=== PATIENT | female | born 1985 | race Caucasian/White ===

== ENCOUNTER → 2017-07-11 15:03 | Outpatient (CLI) | payer OTHER, SELFPAY ==
[2017-07-11 16:24] LABS: Hematocrit 36.4 % (37-47); Hemoglobin 11.9 g/dl (12.0-15.0); Mean Corp Hgb Conc 32.7 g/gl (32-36); Mean Corpuscular Volume 91.7 fL (81-99); Mean Platelet Vol. 10.6 fl (6.2-12.0); Platelet Count 225 K/mm3 (150-450); RBC Distribution Width CV 13.1 % (11.6-14.6); RBC Distribution Width SD 43.7 fl (35.1-43.9); Red Blood Count 3.97 M/mm3 (4.2-5.4); White Blood Count 12.5 K/mm3 (4.4-11.0)
[2017-07-11 16:31] LABS: Glucose Challenge Gest 1H 50g 110 mg/dL (70-140)
[2017-07-11 17:08] LABS: Scan Indicated on CBC? Y/N NO
== END ==
PROVIDERS: Visit Provider Obstetrics & Gynecology
DX: Z34.82 Encounter for supervision of other normal pregnancy, second trimester (principal)
CPT/HCPCS: 36415; 82950; 85027

== ENCOUNTER → 2017-09-10 16:43 | Outpatient (CLI) | payer OTHER, SELFPAY ==
[2017-09-10 18:25] LABS: Group B Strep DNA By PCR Negative (Negative); Internal Control PASS; Probe Check PASS; Specimen Processing Control PASS
== END ==
PROVIDERS: Visit Provider Obstetrics & Gynecology
DX: Z36.85 Encounter for antenatal screening for Streptococcus B (principal)
CPT/HCPCS: 87081; 87653

== ENCOUNTER 2017-10-01 07:03 | Inpatient (IN) | payer OTHER, SELFPAY ==
[2017-10-01] MEDS: Lactated Ringers 1,000 ML 50 ML IV ×3 (07:25→13:39)
[2017-10-01 07:55] LABS: Hematocrit 36.9 % (37-47); Hemoglobin 12.3 g/dl (12.0-15.0); Mean Corp Hgb Conc 33.3 g/gl (32-36); Mean Corpuscular Hgb 29.8 pg (27.0-32.0); Mean Corpuscular Volume 89.3 fL (81-99); Mean Platelet Vol. 10.7 fl (6.2-12.0); Platelet Count 209 K/mm3 (150-450); RBC Distribution Width SD 42.1 fl (35.1-43.9); Red Blood Count 4.13 M/mm3 (4.2-5.4); White Blood Count 9.1 K/mm3 (4.4-11.0)
[2017-10-01 07:57] VITALS: BMI 37.4
[2017-10-01 07:57] LABS: Scan Indicated on CBC? Y/N NO
[2017-10-01] MEDS: Oxytocin 30 units/NS 500 ml 30 UNITS/500 ML IV.SOLN IV (07:59)
[2017-10-01] MEDS: fentaNYL-bupivacaine (epidural) 100 ML BAG EPIDURAL ×2 (08:35→12:33)
[2017-10-01] MEDS: Oxytocin 30 units/NS 500 ml 30 UNITS/500 ML IV.SOLN 334 UNITS IV (14:10)
--- NOTE | 2017-10-01 14:23 | PCM.OB.VAG ---
Vaginal Delivery Maternal Presentation: Elective Induction 39+ weeks admitted for elective induction of labor Method of Induction: Pitocin Amniotic Membrane Rupture Type: Artificial Rupture of Membrane time: 0900 Amniotic Fluid Description: Clear Final MIR: 10/05/17 Final MIR Source: US <20 weeks Gestational age: 39 Weeks and 3 Days Date of Procedure: 10/01/17 Pre-Operative Diagnosis: Labor Post-Operative Diagnosis: Same Surgery/ Procedure Performed: Spontaneous Vaginal Delivery Anesthesiologist: Will Cotton Type of Anesthesia: Epidural Description of Procedure: Progressed over 6 hours from 3 CM to FD then pushed over two contractions to deliver a live male without complication. There was a tight umbilical cord x 1. Reduced after delivery of the body. Delayed cord clamping was employed. Active cry shortly after delivery. The placenta delivered spontaneously intact with a centrally located 3VC. The uterus contracted well. A small posterior vaginal perineal tear was repaired with 2-0 Vicryl. Presentation: Vertex Placental Delivery Description: Spontaneous Placenta Disposition: [facility] Percentage of Placenta Abruption: 0 Cord Vessel Description: 3 Vessels Nuchal Cord Compression: Without compression Cord Entanglement: Around neck x 1, tight Estimated Blood Loss: 250 Infant A gender: Male (1 minute): 8 (5 minute): 9 Episiotomy Description: None Laceration: Midline, Perineal Extension/lac, 2nd degree Medications given after delivery: IV Pitocin Complications: None
[2017-10-01] MEDS: Oxytocin 30 units/NS 500 ml 30 UNITS/500 ML IV.SOLN 167 UNITS IV (14:40)
[2017-10-01] MEDS: Ibuprofen 600 MG Tablet PO ×2 (15:07→21:27)
[2017-10-01] MEDS: 0.9% Saline Lock 10 ML Syringe IV (16:25)
[2017-10-01] MEDS: Acetaminophen 500 MG Tablet 1000 MG PO (18:24)
[2017-10-01 20:10] VITALS: BP 127/77; PULSE 89; RESP 18; TEMP 36.3; O2SAT 98
[2017-10-01] MEDS: oxyCODONE 5 MG Tablet PO (22:16)
[2017-10-02 00:30] VITALS: BP 106/57; PULSE 83; RESP 18; TEMP 36
[2017-10-02] MEDS: oxyCODONE 5 MG Tablet PO (02:17)
[2017-10-02] MEDS: Ibuprofen 600 MG Tablet PO ×4 (04:28→21:56)
[2017-10-02 04:30] VITALS: BP 112/67; PULSE 87; RESP 18; TEMP 36.1
[2017-10-02 04:47] LABS: Hematocrit 32.7 % (37-47); Hemoglobin 11.2 g/dl (12.0-15.0); Mean Corp Hgb Conc 34.3 g/gl (32-36); Mean Corpuscular Hgb 31.1 pg (27.0-32.0); Mean Corpuscular Volume 90.8 fL (81-99); Mean Platelet Vol. 10.6 fl (6.2-12.0); Platelet Count 173 K/mm3 (150-450); RBC Distribution Width CV 12.8 % (11.6-14.6); RBC Distribution Width SD 41.9 fl (35.1-43.9); White Blood Count 13.1 K/mm3 (4.4-11.0)
[2017-10-02 04:48] LABS: Scan Indicated on CBC? Y/N NO
[2017-10-02] MEDS: Acetaminophen 500 MG Tablet 1000 MG PO ×2 (06:47→14:32)
--- NOTE | 2017-10-02 07:57 | PCM.PN.OB ---
Subjective: Some cramping. Breast feeding. Bleeding appropriate. Objective: Afeb VSS. Hgb appropriate - Physical Exam General: Alert, Oriented x3, Cooperative, No apparent distress Lungs: Clear to auscultation, Normal air movement Cardiovascular: Regular rate, Regular Rhythm Abdomen: Non Tender, Non-Distended Extremities: No edema Skin: No rashes Neurological: Neuro grossly intact Psych/Mental Status: Normal Affect Comment: Lochia light Vital Signs Temp Pulse Resp BP Pulse Ox 96.9 F L 87 18 112/67 98 10/02/17 04:30 10/02/17 04:30 10/02/17 04:30 10/02/17 04:30 10/01/17 20:10 Oxygen Delivery Method Room Air Weight: 246 lb 4.101 oz Body Mass Index (BMI) 37.4 Intake and Output for Last 24 Hours 09/30/17 10/01/17 10/02/17 23:59 23:59 23:59 Output Total 400 / 400 Balance -400 / -400 Laboratory Tests Past 24 Hrs 10/01/17 10/01/17 10/02/17 07:25 07:25 04:35 WBC 9.1 13.1 H RBC 4.13 L 3.60 L Hgb 12.3 11.2 L Hct 36.9 L 32.7 L MCV 89.3 90.8 MCH 29.8 31.1 MCHC 33.3 34.3 RDW 13.0 12.8 RDW Differential 42.1 41.9 Plt Count 209 173 MPV 10.7 10.6 Blood Type O POSITIVE Antibody Screen NEGATIVE Medical Necessity - Tobacco Use Smoking Status: Never smoker Assessment/Plan Doing well on PP day#2. Continue routine PP care.
[2017-10-02 08:00] VITALS: BP 110/64; PULSE 93; RESP 18; TEMP 36.8
--- NOTE | 2017-10-02 08:02 | DCINST_ITS ---
Discharge Diet: No Restrictions Discharge Activity: Return to Normal Activity, No Restrictions, May Drive, May Shower Return to work on:: 12/01/17 May shower in (days): 0 May resume sexual activity in: 4-6 weeks Call your doctor if your incision/area has: Sudden Increased Bleeding, Increased Pain/ Swelling, Foul Smelling Discharge Call your doctor if you observe: Fever of 101 or Higher, Inability to urinate, Inability to have a bowel movement, Using more than one pad per hour, Shortness of breath, Chest pain, Calf discomfort, Uncontrolled pain Cleanse incision/area with: Soap & Water Additional Instructions: If you experience any of the following, contact your healthcare provider. * Bleeding that soaks a pad every hour for 2 hours * Fever 100.4 or higher * Unrelieved incision or abdominal pain * Swelling, redness, discharge or bleeding from your incision or episiotomy site * Your incision begins to separate * Problems urinating (including inability to urinate or burning while urinating) . * Visual changes * Severe headache * Flu-like symptoms * Pain or redness in one of both of your breasts * Pain, warmth, tenderness or swelling in your legs, especially the calf area * Frequent nausea and vomiting * Symptoms of depression or anxiety If you experience any of the following, call 911 or go to the nearest Emergency Room. * Chest pain * Problems breathing * Seizure activity * Partial or complete paralysis of a body part, slurred speech, weakness or drooping of the face, or a sudden inability to walk or hold your balance Allergies/Adverse Reactions: Allergies No Known Allergies Allergy (Verified 09/21/13 12:03) Medications to take at Discharge Acetaminophen [Tylenol] 1,000 mg PO Q6H PRN PRN 10/01/17 Docusate Sodium [Dok] 100 mg PO PRN PRN 10/01/17 Vits [Prenatabs FA ] 1 tablet PO DAILY 10/01/17 SimETHICONE [Mylicon] 80 mg PO PRN PRN 10/01/17 Ibuprofen 600 mg PO Q6H PRN PRN #30 tab 10/02/17 The following prescriptions were given: Ibuprofen 600 mg PO Q6H PRN PRN #30 tab PRN Reason: pain or cramping Please Follow Up With: Florentin Woodruff MD When: 6 weeks Primary Care Physician: Michoacano Jalloh MD [Primary Care Provider] - Proposed Discharge Date: 10/03/17
[2017-10-02] MEDS: Senna/Docusate Sodium 1 Tablet PO (10:18)
[2017-10-02] MEDS: Prenatal Vits Tablet 1 TABLET PO (10:19)
[2017-10-02 12:00] VITALS: BP 117/69; PULSE 82; RESP 16; TEMP 36.4
[2017-10-02 16:00] VITALS: BP 118/63; PULSE 96; RESP 18; TEMP 36.8
[2017-10-02 20:00] VITALS: BP 116/84; PULSE 84; RESP 18; TEMP 36.3
[2017-10-03 02:45] VITALS: BP 118/80; PULSE 80; RESP 16; TEMP 36.4
[2017-10-03] MEDS: Ibuprofen 600 MG Tablet PO ×2 (04:00→10:25)
--- NOTE | 2017-10-03 08:38 | PCM.PN.OB ---
Subjective: No specific complaints. Breast feeding Bleeding light Objective: Afeb VSS - Physical Exam General: Alert, Oriented x3, Cooperative, No apparent distress Lungs: Clear to auscultation, Normal air movement Cardiovascular: Regular rate, Regular Rhythm Abdomen: Soft, Non Tender, Non-Distended, - - Fundus nontender Extremities: No edema Skin: No rashes Neurological: Neuro grossly intact Psych/Mental Status: Normal Affect Comment: Lochia light Vital Signs Temp Pulse Resp BP Pulse Ox 97.5 F L 80 16 118/80 98 10/03/17 02:45 10/03/17 02:45 10/03/17 02:45 10/03/17 02:45 10/01/17 20:10 Oxygen Delivery Method Room Air Weight: 246 lb 4.101 oz Body Mass Index (BMI) 37.4 Intake and Output for Last 24 Hours 10/01/17 10/02/17 10/03/17 23:59 23:59 23:59 Output Total 400 / 400 Balance -400 / -400 Medical Necessity - Tobacco Use Smoking Status: Never smoker Assessment/Plan Doing well on PP day#2. Cleared for discharge home today. Home going instructions and warnings given.
--- NOTE | 2017-10-03 08:40 | PCM.DC.SUM ---
Discharge Date and Diagnosis Date of Admission: 10/01/17 Date of Discharge: 10/03/17 - Primary Discharge Diagnosis S/P Hospital Course and Treatment Consultations 10/01/17 07:20 Consult: Anesthesia Routine Comment: Reason For Exam: LABOR Operations: None Procedures: - - Pitocin induction, Summary of Care Provided: The patient is a 32 year old F admitted for elective induction of labor. This was performed without complication with resultant of live . Post course unremarkable. Discharged home on PP day#2. Discharge Diet: No Restrictions Discharge Activity: Return to Normal Activity, No Restrictions, May Drive, May Shower Return to work on:: 12/01/17 May shower in (days): 0 May resume sexual activity in: 4-6 weeks Call your doctor if your incision/area has: Sudden Increased Bleeding, Increased Pain/ Swelling, Foul Smelling Discharge Call your doctor if you observe: Fever of 101 or Higher, Inability to urinate, Inability to have a bowel movement, Using more than one pad per hour, Shortness of breath, Chest pain, Calf discomfort, Uncontrolled pain Cleanse incision/area with: Soap & Water Home Medications: Medications to take at Discharge Acetaminophen [Tylenol] 1,000 mg PO Q6H PRN PRN 10/01/17 Docusate Sodium [Dok] 100 mg PO PRN PRN 10/01/17 Vits [Prenatabs FA ] 1 tablet PO DAILY 10/01/17 SimETHICONE [Mylicon] 80 mg PO PRN PRN 10/01/17 Ibuprofen 600 mg PO Q6H PRN PRN #30 tab 10/02/17 Following Prescrptions Were Given to Patient: Ibuprofen 600 mg PO Q6H PRN PRN #30 tab PRN Reason: pain or cramping Primary Care Physician: Michoacano Jalloh MD [Primary Care Provider] - Please Follow Up With: Florentin Woodruff MD When: 6 weeks Disposition: Home Minutes spent on discharge:: 55 Patient Condition:: Good Medical Necessity - Tobacco Use Smoking Status: Never smoker Meaningful Use Info Meaningful Use Diagnoses (Choose all that apply): None applicable
[2017-10-03 08:49] VITALS: BP 119/71; PULSE 96; RESP 16; TEMP 36.1; O2SAT 98
[2017-10-03] MEDS: Prenatal Vits Tablet 1 TABLET PO (10:25)
[2017-10-03 11:55] VITALS: BP 121/70; PULSE 88; RESP 18; TEMP 36.4
== END 2017-10-03 12:00 | disposition home or self-care (01) | DRG 775 ==
PROVIDERS: Admitting Provider Obstetrics & Gynecology; Family Provider Family Medicine; PCP Family Medicine; Visit Provider Obstetrics & Gynecology
DX: O69.1XX0 Labor and delivery complicated by cord around neck, with compression, not applicable or unspecified (principal); O70.1 Second degree perineal laceration during delivery; Z3A.39 39 weeks gestation of pregnancy; Z37.0 Single live birth
CPT/HCPCS: 59050; 85027; 86850; 86900; 99218; J7120; A4216; G0378; J3490

== ENCOUNTER → 2017-11-04 09:05 | Outpatient (CLI) | payer OTHER, SELFPAY | PROVIDERS: Visit Provider Obstetrics & Gynecology | DX: R30.0 Dysuria (principal) | CPT/HCPCS: 87086; 87088 ==

== ENCOUNTER → 2018-01-30 15:37 | Outpatient (CLI) | payer OTHER, SELFPAY ==
[2018-02-06 15:11] LABS: HPV HC, High Risk Negative (Negative)
== END ==
PROVIDERS: PCP Family Medicine; Visit Provider Obstetrics & Gynecology
DX: Z12.4 Encounter for screening for malignant neoplasm of cervix (principal)
CPT/HCPCS: 87624; 88175; G0145

== ENCOUNTER → 2019-06-14 | Outpatient (CLI) | payer OTHER, SELFPAY ==
[2019-06-14 19:49] LABS: Chlamydia Trachomatis by PCR Negative (Negative); Neisserai gonorrhoeae by PCR Negative (Negative); Probe Check PASS; Sample Adequacy Control PASS; Specimen Processing Control PASS
== END | disposition home or self-care (01) ==
PROVIDERS: PCP Family Medicine; Visit Provider Obstetrics & Gynecology
DX: Z11.3 Encounter for screening for infections with a predominantly sexual mode of transmission (principal)
CPT/HCPCS: 87491; 87591

== ENCOUNTER → 2019-12-28 | Outpatient (CLI) | payer OTHER, SELFPAY ==
[2019-12-30 20:07] LABS: Chlamydia By Nucleic Acid AMP Negative (Negative)
[2019-12-31 02:03] LABS: Gonococcus By Nucleic Acid AMP Negative (Negative)
[2020-01-03 11:50] LABS: HPV Reflexed? NOT INDICATED
== END | disposition home or self-care (01) ==
LOC: LABSPEC 12-29 08:55
PROVIDERS: PCP Family Medicine; Visit Provider Obstetrics & Gynecology
DX: Z12.4 Encounter for screening for malignant neoplasm of cervix (principal); Z11.3 Encounter for screening for infections with a predominantly sexual mode of transmission
CPT/HCPCS: 87491; 87591; 88175; G0145

== ENCOUNTER → 2020-07-18 | Outpatient (CLI) | payer OTHER, SELFPAY | END | disposition home or self-care (01) | LOC: LABSPEC 07-19 09:46 | PROVIDERS: PCP Family Medicine; Visit Provider Obstetrics & Gynecology | DX: Z36.85 Encounter for antenatal screening for Streptococcus B (principal) | CPT/HCPCS: 87081 ==

== ENCOUNTER 2020-08-07 07:04 | Inpatient (IN) | payer OTHER, SELFPAY ==
[2020-08-07] VITALS (53 sets, daily range): BP systolic 108–150; BP diastolic 58–91; PULSE 82–123; RESP 16; TEMP 36.5–37.8; O2SAT 83–100; BMI 82.2
--- NOTE | 2020-08-07 07:32 | HP.PCM_ITS ---
History and Physical Date of Admission: 08/07/20 ACOG ANTEPARTUM RECORD - HISTORY AND PHYSICAL (08/07/2020) Name: EARL JACKSON History of this : This is a 35 year old [id number] presents at 39 wks + 1 days gestation for elective pitocin induction. OB Physician: Rito Carrizales MD Sidney's Physician: Robinson Beard ...................................................................... : 1985 Age: 35 Address: [address] [address] Phone: (h) [phone] ([phone] Insurance Carrier: [facility] [id number] Emergency Contact: CESILIA JACKSON [phone] ...................................................................... Final MIR: 08/13/20 By Ultrasound: 7 weeks 2 days PARITY: (G-Total Pregnancies P-Fullterm,Premature,Induced AB,Spont AB, Ectopics, Multiple,Living) MIR CONFIRMATION: By LMP: 11/03/19 By First Ultrasound Exam: 01/27/20 Final IMR: 08/13/20 OB PROBLEM LIST: AMA Declined AFP/CF/SMA screening Epidural planned Formula feeding Labor usually induced d/t hx of rapid labors and distance from [facility] Lives 45 mins from [place] ALLERGIES: NKDA MEDICATIONS: 28 mg iron-800 mcg tablet daily SOCIAL HISTORY: Smoking - Never Alcohol Use - denies drinking Diet - balanced Diet Lifestyle - moderate stress lifestyle and Exercise - active 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 Drug Use - denies use of street drugs Sexual Activity - Residence - lives with Place of - [place], [place] Spouse-Sig Other Name - Cesilia Spouse-Sig Other 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 - hospice music therapist - Diane Frias Spouse-Sig Other Phone No - [phone] Children Name(s) - Duke ([place]), Liu (male) ([place]), Walker (09/29) sayra PRIOR DELIVERY HISTORY DEL DATE GEST LAB WT LB WT OZ TYPE ANES LABOR TX 12 Dec 12 39 12 6 9 Vag Epidural No 14 Lavelle 14 39 3 7 15 Vag Epidural No 20 [place] 18 39 6 7 12 Vag Epidural No 25 Jun 20 7 0 0 0 Sab None No ANTEPARTUM FLOW CHART VISIT GE RTC FU F F OK U U DATE WK MD WKS HT PN HR M SS BP ED WT OK GL D EF ST __ ____ ___ __ __ ___ __ __ __ ___ __ __ __ ___ __ Jul 38 JM 1 38 V + + 138/82 sl 232 tr - 13 Apr 37 JMW 1 37 + + 132/84 sl 234 tr - 06 Apr 36 JMW 1 36 V + + 116/74 sl 233 tr - 1 50 -2 Jun 34 JMW 2 34 + + 128/78 sl 224 tr - 09 Mar 32 JMW 2 32 + + 126/76 0 227 tr - Jun 11 JMW 3 28 + + 111/76 0 225 - - May 07 JMW 4 24 + + 118/64 0 218 tr - 15 Apr 02 JM 4 20 - + + 136/83 sl 207 tr - 10 Feb 26 JMW 4 15 + + 114/60 - 218 tr - 13 Jan 22 JMW 4 + O 118/64 0 211 tr - 16 Jun 20 CH 1 124/82 0 214 - - ANTEPARTUM NOTE(S): Aug 01 2020: Would like to be set-up for Induction Jul 25 2020: Good FM,Feeling Well Jul 18 2020: GBS Today,LARC form signed Jul 04 2020: Good FM.Feeling Well Jun 20 2020: Good FM,Feeling Well May 23 2020: CBC,OGCT Today,Good FM,Feeling Well Apr 25 2020: Doing Well, Glucola given with instructions Mar 28 2020: u/s today, mild mid abdominal pain, suggest support belt Feb 22 2020: doing well, declines AFP Jan 25 2020: Doing Well, Declines AFP Jun 28 2019: feeling well. COMPREHENSIVE ANTEPARTUM NOTE(S): Aug 01 2020: 38wk, GBS neg. Desires IOL with AMA at term and hx of fast deliveries remote from the hospital. Scheduled for 08/07/20 at 0700. STEFANY Jul 26 2020: H taken to OB. tkg May 23 2020: Labs drawn x 1 attempt from Lt ac with 23g butterfly, patient tolerated well site without compromise. MARLYN Mar 28 2020: 20wk, anatomy u/s wnl. 1hr GTT 24-28wks. JM Mar 05 2020: Call msg from 03/04/20 @ 8:[address] Carrizales. Earl calling @ 16 wks 6 days reporting her Sister tested Positive for COVID on Tuesday 02/27. She does not see her sister, however, sister spends time with their mother and Marvinnabor helps care for her mother in mother's home. Mother Sx w/similar Sx as Sister and was COVID tested Friday -- do not know results yet. On Fri and , Earl had 2 d Jan 25 2020: labs obtained from left ac with 23g butterfly patient tolerated well, site without compromise. Kayden Jan 14 2020: TELEHEALTH NOB VISIT, DURATION 25 MINUTES. Earl is a 34 year o ld A1 with an MIR of 08/13/2020, current GA is 9 w 5 d. She reports that a few weeks ago, she experienced a lot of nausea, now much better with only occasional periods of nausea. Denies any vomiting. She is an established pt with this office, and is aware of office practice patterns. She plans delivery at [facility] with an epidural, REVIEW OF SYSTEMS: GENERAL - Denies fever, or chills SKIN - Denies rash, new skin lesions, or change in moles EYES - Denies blurred vision, or change in visual acuity EARS - Denies ear pain, or difficulty hearing NOSE - Denies nasal congestion, discharge, or bleeding MOUTH - Denies sore throat, or difficulty swallowing NECK - Denies pain or swelling RESPIRATORY - Denies shortness of breath, cough, wheezing CARDIOVASCULAR - Denies palpitations, chest pain, orthopnea, PND, peripheral edema, syncope or claudication GASTROINTESTINAL - Denies nausea, vomiting, diarrhea, constipation, Denies abdominal pain, melena and or bright red blood GENITOURINARY - Denies dysuria, frequency of urination, urgency, or hesitancy MUSCULOSKELETAL - Denies joint or muscle pain, or back pain NEUROLOGICAL - Denies localized numbness, weakness, or tingling PSYCHIATRIC - Denies depression, anxiety, substance abuse or suicide attempts ENDOCRINE - Denies heat or cold intolerance, weight loss or gain, increasing thirst HEMATO-IMMUNOLOGIC - Denies easy bruising, bleeding, oral ulcerations or recurrent infections GENETICS SCREENING: Age 35+ years: Yes Thalassemia: No Neural Tube Defect: No Down Syndrome: No LALIT-SACHS: No Sickle Cell Disease: No Hemophilia: No Musc. Dystrophy: No Cystic Fibrosis: No-declines screening Sam Chorea: No Mental Retardation: No Fragile X: No Other genetic: No Other defects: No SABs/still births: No Drugs since LMP: No INFECTION HISTORY: High risk AIDS: No High risk Hepatitis: No Exposed to TB: No Exposed to Herpes: No Rash/viral illness since LMP: No History of STD: No MENSTRUAL HISTORY: *Menses Amount/Duration: 4 daysMenses Regularity: RegularMenarche (Age Onset): 13HCG+: 02/14/2017* PAST SUMMARY: PARITY: 1. Total Pregnancies............ 5 2. Full Term Pregnancies........ 3 3. Premature.................... 0 4. Abortions - Induced.......... 0 5. Abortions - Spontaneous...... 1 6. Ectopics..................... 0 7. Multiple Births.............. 0 8. Living Children.............. 3 PAST #1: Date of :.................. 12/25/11 Gestation Weeks:................ 39 Length of labor(hours):......... 12 Sex:............................ F Weight-lbs:............... 6 Weight-oz:................ 9 Type of Delivery:............... Vag Type of Anesthesia:............. Epidural Place of Delivery:.............. [place] Treatment of Labor?:.... No Comment: INDUCED PAST #2: Date of :.................. 09/25/13 Gestation Weeks:................ 39 Length of labor(hours):......... 3 Sex:............................ M Weight-lbs:............... 7 Weight-oz:................ 15 Type of Delivery:............... Vag Type of Anesthesia:............. Epidural Place of Delivery:.............. [place] Treatment of Labor?:.... No Comment: IOL PAST #3: Date of :.................. 10/01/17 Gestation Weeks:................ 39 Length of labor(hours):......... 6 Sex:............................ M Weight-lbs:............... 7 Weight-oz:................ 12 Type of Delivery:............... Vag Type of Anesthesia:............. Epidural Place of Delivery:.............. [place] Treatment of Labor?:.... No Comment: PAST #4: Date of :.................. 07/07/19 Gestation Weeks:................ 7 Length of labor(hours):......... 0 Sex:............................ Weight-lbs:............... 0 Weight-oz:................ 0 Type of Delivery:............... Sab Type of Anesthesia:............. None Place of Delivery:.............. none Treatment of Labor?:.... No Comment: PHYSICAL EXAMINATION General Appearence: 35 yo female in no acute distress Vital Signs: AF, VSS Heart: RRR without rubs or gallops Lungs: CTA x 2 Breasts: deferred Abdomen: gravid Pelvis: Cervix: Presentation: cephalic Station: Fetus: Size: AGA Movement: present Heart: present LAB TEST(S) ORDERED SINCE:11/17/19 01/28/2020 RUBELLA IGG ANTIBODY [CCL] 01/28/2020 RPR [CCL] 01/28/2020 HEPATITIS C AB IA W/CONFIRM [CCL] 01/28/2020 HEP B SURFACE AG [CCL] 01/25/2020 URINALYSIS 01/25/2020 TSH 01/25/2020 CBC + DIFF 01/25/2020 BB TYPE 01/03/2020 PAP IG W/REFLEX HR HPV APTIMA 12/31/2019 CHLAMYDIA/GC ADIEL APTIMA 07/22/2020 CULTURE, GROUP B STREPTOCOCCUS 05/25/2020 CBC + DIFF 05/23/2020 GLUCOSE CHALLENGE 50GM 1 HOUR == ==== Order Observation Description Value Ref_Range A* Site == ==== CULTURE, GROUP NOTE [facility] CBC + DIFF NOTE [facility] CBC + DIFF CBC + DIFF [facility] CBC-COMPLETE BLOOD COUNT CBC + DIFF WBC 9.8 x 10EE3/UL 4.5 - 10.8 [facility] CBC + DIFF RBC 3.79 x 10EE6/UL 4.10 - 5.30 L [facility] CBC + DIFF HEMOGLOBIN 11.9 g/dl 12.0 - 16.0 L [facility] CBC + DIFF HEMATOCRIT 34.3 % 34.0 - 46.0 [facility] CBC + DIFF MCV 91 fl 80 - 99 [facility] CBC + DIFF MCH 31 pg 27 - 33 [facility] CBC + DIFF MCHC 35 X10 3 32 - 36 [facility] CBC + DIFF RDW/CV 12.5 % 12.0 - 15.6 [facility] CBC + DIFF PLATELET 204 x10EE3/UL 150 - 450 [facility] CBC + DIFF MPV 8.9 fl 6.6 - 10.5 [facility] AUTOMATED DIFFERENTIAL CBC + DIFF NEUT % 79.1 % 46.0 - 76.0 H [facility] CBC + DIFF LYMPH % 15.7 % 20.0 - 45.0 L [facility] CBC + DIFF MONOS % 4.6 % 0.0 - 10.0 [facility] CBC + DIFF EO % 0.3 % 0.0 - 7.0 [facility] CBC + DIFF BASO % 0.3 % 0.0 - 2.0 [facility] CBC + DIFF LYMPH # 1.50 x10EE3/UL 0.80 - 2.80 [facility] CBC + DIFF NEUT # 7.80 x10EE3/UL 1.50 - 7.10 H [facility] CBC + DIFF MONO # 0.40 x10EE3/UL 0.20 - 1.00 [facility] CBC + DIFF EO # 0.00 x10EE3/UL 0.00 - 0.50 [facility] CBC + DIFF BASO # 0.00 x10EE3/UL 0.00 - 0.10 [facility] CBC + DIFF MANUAL DIFF N/A [facility] CBC + DIFF MORPHOLOGY N/A [facility] {CD] GLUCOSE CHALLEN NOTE [facility] GLUCOSE CHALLEN GLUCOSE CHALLENGE 50GM 1 [facility] GLUCOSE CHALLENGE 50 GMS 1 HOUR GLUCOSE CHALLEN GLUCOSE 1HR 116 mg/dl 70 - 140 [facility] RUBELLA IGG ANT NOTE [facility] RUBELLA IGG ANT [facility] AB, QUAL Positive NEGAT A [facility] Sample is considered positive for IgG antibodies to rubella virus. A positive result indicates previous exposure to Rubella virus or vaccination. [facility] IGG ANT [facility] IGG AB 2.19 Indexlue [facility] Index values are interpreted as follows: Negative specimens <0.90 Equivocol specimens 0.90 to 0.99 Positive specimens >0.99 The magnitude of the measured result is not indicative of the [place] [address] Otilio Jaquez III, M.D. [id number] HEPATITIS C AB NOTE [facility] HEPATITIS C AB HEPATITIS C AB IA Negative NEGAT [address] [address] Otilio Jaquez III, M.D. [id number] HEP B SURFACE A NOTE [facility] HEP B SURFACE A HEPATITIS B SURF. AG Negative NEGAT [address] [address] Otilio Jaquez III, M.D. [id number] RPR [CCL] NOTE [facility] RPR [CCL] RPR Non Reactive NR [facility] [address] [place] [address] Otilio Jaquez III, M.D. [id number] BB TYPE NOTE [facility] BB TYPE BB TYPE [facility] TYPE, Rh, AND SCREEN BB TYPE ABO O [facility] BB TYPE RH POS [facility] BB TYPE ANTIBODY SCR negative [facility] TSH NOTE [facility] TSH TSH 0.69 uIU/ml 0.34 - 5.60 [facility] URINALYSIS NOTE [facility] URINALYSIS URINALYSIS [facility] URINALYSIS URINALYSIS SPECIMEN TYPE UNSPECIFIED [facility] URINALYSIS COLOR genaro NORMAL: YELLOW [facility] URINALYSIS CLARITY very cloudy NORMAL: CLEAR [facility] URINALYSIS PH 5 NORMAL: 5.0-8.0 [facility] URINALYSIS PROTEIN NEG NORMAL: NEGATIV [facility] URINALYSIS GLUCOSE NORM NORMAL: NORMAL [facility] URINALYSIS KETONE 5 NORMAL: NEGATIV A [facility] URINALYSIS BILIRUBIN NEG NORMAL: NEGATIV [facility] URINALYSIS BLOOD NEG NORMAL: NEGATIV [facility] URINALYSIS UROBILINOG NORM NORMAL: NORMAL [facility] URINALYSIS SP GRAVITY 1.025 NORMAL: 1.010-1 [facility] URINALYSIS NITRITE NEG NORMAL: NEGATIV [facility] URINALYSIS LEUKOCYTES 25 NORMAL: NEGATIV A [facility] URINALYSIS MICROSCOPIC SEE BELOW [facility] MICROSCOPIC URINALYSIS WBC NONE 0-5/hpf [facility] URINALYSIS RBC NONE 0-3/hpf [facility] URINALYSIS CASTS NONE [facility] URINALYSIS CRYSTALS NONE [facility] URINALYSIS AMORPHOUS 4+ [facility] URINALYSIS BACTERIA NONE [facility] URINALYSIS EPI CELLS OCC [facility] URINALYSIS MUCOUS NONE [facility] URINALYSIS YEAST NONE [facility] CBC + DIFF NOTE [facility] CBC + DIFF CBC + DIFF [facility] CBC-COMPLETE BLOOD COUNT CBC + DIFF WBC 9.9 x 10EE3/UL 4.5 - 10.8 [facility] CBC + DIFF RBC 4.28 x 10EE6/UL 4.10 - 5.30 [facility] CBC + DIFF HEMOGLOBIN 13.1 g/dl 12.0 - 16.0 [facility] CBC + DIFF HEMATOCRIT 38.5 % 34.0 - 46.0 [facility] CBC + DIFF MCV 90 fl 80 - 99 [facility] CBC + DIFF MCH 31 pg 27 - 33 [facility] CBC + DIFF MCHC 34 X10 3 32 - 36 [facility] CBC + DIFF RDW/CV 12.5 % 12.0 - 15.6 [facility] CBC + DIFF PLATELET 207 x10EE3/UL 150 - 450 [facility] CBC + DIFF MPV 10.3 fl 6.6 - 10.5 [facility] AUTOMATED DIFFERENTIAL CBC + DIFF NEUT % 73.3 % 46.0 - 76.0 [facility] CBC + DIFF LYMPH % 21.5 % 20.0 - 45.0 [facility] CBC + DIFF MONOS % 4.5 % 0.0 - 10.0 [facility] CBC + DIFF EO % 0.4 % 0.0 - 7.0 [facility] CBC + DIFF BASO % 0.3 % 0.0 - 2.0 [facility] CBC + DIFF LYMPH # 2.10 x10EE3/UL 0.80 - 2.80 [facility] CBC + DIFF NEUT # 7.30 x10EE3/UL 1.50 - 7.10 H [facility] CBC + DIFF MONO # 0.40 x10EE3/UL 0.20 - 1.00 [facility] CBC + DIFF EO # 0.00 x10EE3/UL 0.00 - 0.50 [facility] CBC + DIFF BASO # 0.00 x10EE3/UL 0.00 - 0.10 [facility] CBC + DIFF MANUAL DIFF N/A [facility] CBC + DIFF MORPHOLOGY N/A [facility] PAP IG W/REFLEX NOTE [facility] PAP IG W/REFLEX DIAGN Comment . LC NEGATIVE FOR INTRAEPITHELIAL LESION OR MALIGNANCY. THIS SPECIMEN WAS RESCREENED PART OF OUR BRUSH HOLDER ASSEMBLER PROGRAM. PAP IG W/REFLEX ADEQ Comment . LC Satisfactory for evaluation. Endocervical and/or squamous metaplastic cells (endocervical component) are present. PAP IG W/REFLEX PERFORM Comment . DIOR Nelson, Instrument Maintenance Supervisor (ASCP) PAP IG W/REFLEX QC REV Comment . LC Sunitha A VanHoose, Supervisory Instrument Maintenance Supervisor (ASCP) PAP IG W/REFLEX TEST METHOD Comment . This liquid based ThinPrep(R) pap test was screened with the use of an image guided system. PAP IG W/REFLEX COMM . . PAP IG W/REFLEX PAPSMR Comment . LC The Pap smear is a screening test designed to aid in the detection of premalignant and malignant conditions of the uterine cervix. It is not a diagnostic procedure and should not be used as the sole means of detecting cervical cancer. Both false-positive and false-negative reports do occur. PAP IG W/REFLEX HPV RFLX Comment . The HPV DNA reflex criteria were not met with this specimen result therefore, no HPV testing was performed. Performed at: [address] [id number] Manager Forms: Chana Cardenas MD, Phone: [phone] CHLAMYDIA/GC NA NOTE [facility] CHLAMYDIA/GC NA CHLAMY,NUC ACID Negative Negative LC CHLAMYDIA/GC NA GC BY NUC ACID Negative Negative LC Performed at: = - [address] [id number] Manager Forms: Chana Cardenas MD, Phone: [phone] [facility] Group B Beta Streptococcus is not isolated. == ==== Impression /Plan: 39 wks + 1 days intrauterine . Preparations in progress for delivery.
--- NOTE | 2020-08-07 07:32 | PCM.HP.BLA ---
History and Physical Date of Admission: 08/07/20 ACOG ANTEPARTUM RECORD - HISTORY AND PHYSICAL (08/07/2020) Name: EARL JACKSON History of this : This is a 35 year old [id number] presents at 39 wks + 1 days gestation for elective pitocin induction. OB Physician: Rito Carrizales MD [place]'s Physician: Robinson Beard ...................................................................... : 1985 Age: 35 Address: [address] [address] Phone: (h) [phone] ([phone] Insurance Carrier: [facility] [phone] Emergency Contact: CESILIA JACKSON [phone] ...................................................................... Final MIR: 08/13/20 By Ultrasound: 7 weeks 2 days PARITY: (G-Total Pregnancies P-Fullterm,Premature,Induced AB,Spont AB, Ectopics, Multiple,Living) MIR CONFIRMATION: By LMP: 11/03/19 By First Ultrasound Exam: 01/27/20 Final MIR: 08/13/20 OB PROBLEM LIST: AMA Declined AFP/CF/SMA screening Epidural planned Formula feeding Labor usually induced d/t hx of rapid labors and distance from [facility] Lives 45 mins from [place] ALLERGIES: NKDA MEDICATIONS: 28 mg iron-800 mcg tablet daily SOCIAL HISTORY: Smoking - Never Alcohol Use - denies drinking Diet - balanced Diet Lifestyle - moderate stress lifestyle and Exercise - active 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 Drug Use - denies use of street drugs Sexual Activity - Residence - lives with Place of - [place], [place] Spouse-Sig Other Name - Cesilia Spouse-Sig Other 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 - Diane Frias Spouse-Sig Other Phone No - [phone] Children Name(s) - Duke ([place]), Liu (male) ([place]), Walker (09/29) sayra PRIOR DELIVERY HISTORY DEL DATE GEST LAB WT LB WT OZ TYPE ANES LABOR TX 12 Dec 12 39 12 6 9 Vag Epidural No 14 [place] 14 39 3 7 15 Vag Epidural No 20 [place] 18 39 6 7 12 Vag Epidural No 25 Jun 20 7 0 0 0 Sab None No ANTEPARTUM FLOW CHART VISIT GE RTC FU F F OH U U DATE WK MD WKS HT PN HR M SS BP ED WT OH GL D EF ST __ ____ ___ __ __ ___ __ __ __ ___ __ __ __ ___ __ Jul 38 JM 1 38 V + + 138/82 sl 232 tr - 13 Apr 37 JMW 1 37 + + 132/84 sl 234 tr - 06 Apr 36 JMW 1 36 V + + 116/74 sl 233 tr - 1 50 -2 Jun 34 JMW 2 34 + + 128/78 sl 224 tr - 09 Mar 32 JMW 2 32 + + 126/76 0 227 tr - Jun 11 JMW 3 28 + + 111/76 0 225 - - May 07 JMW 4 24 + + 118/64 0 218 tr - 15 Apr 02 JM 4 20 - + + 136/83 sl 207 tr - 10 Feb 26 JMW 4 15 + + 114/60 - 218 tr - 13 Jan 22 JMW 4 + O 118/64 0 211 tr - 16 Jun 20 CH 1 124/82 0 214 - - ANTEPARTUM NOTE(S): Aug 01 2020: Would like to be set-up for Induction Jul 25 2020: Good FM,Feeling Well Jul 18 2020: GBS Today,LARC form signed Jul 04 2020: Good FM.Feeling Well Jun 20 2020: Good FM,Feeling Well May 23 2020: CBC,OGCT Today,Good FM,Feeling Well Apr 25 2020: Doing Well, Glucola given with instructions Mar 28 2020: u/s today, mild mid abdominal pain, suggest support belt Feb 22 2020: doing well, declines AFP Jan 25 2020: Doing Well, Declines AFP Jun 28 2019: feeling well. COMPREHENSIVE ANTEPARTUM NOTE(S): Aug 01 2020: 38wk, GBS neg. Desires IOL with AMA at term and hx of fast deliveries remote from the hospital. Scheduled for 08/07/20 at 0700. STEFANY Jul 26 2020: H taken to OB. tkg May 23 2020: Labs drawn x 1 attempt from Lt ac with 23g butterfly, patient tolerated well site without compromise. MARLYN Mar 28 2020: 20wk, anatomy u/s wnl. 1hr GTT 24-28wks. JM Mar 05 2020: Call msg from 03/04/20 @ 8:[address] Carrizales. Earl calling @ 16 wks 6 days reporting her Sister tested Positive for COVID on Tuesday 02/27. She does not see her sister, however, sister spends time with their mother and Marvinnabor helps care for her mother in mother's home. Mother Sx w/similar Sx as Sister and was COVID tested Friday -- do not know results yet. On Fri and , Earl had 2 d Jan 25 2020: labs obtained from left ac with 23g butterfly patient tolerated well, site without compromise. Kayden Jan 14 2020: TELEHEALTH NOB VISIT, DURATION 25 MINUTES. Earl is a 34 year old A1 with an MIR of 08/13/2020, current GA is 9 w 5 d. She reports that a few weeks ago, she experienced a lot of nausea, now much better with only occasional periods of nausea. Denies any vomiting. She is an established pt with this office, and is aware of office practice patterns. She plans delivery at [facility] with an epidural, REVIEW OF SYSTEMS: GENERAL - Denies fever, or chills SKIN - Denies rash, new skin lesions, or change in moles EYES - Denies blurred vision, or change in visual acuity EARS - Denies ear pain, or difficulty hearing NOSE - Denies nasal congestion, discharge, or bleeding MOUTH - Denies sore throat, or difficulty swallowing NECK - Denies pain or swelling RESPIRATORY - Denies shortness of breath, cough, wheezing CARDIOVASCULAR - Denies palpitations, chest pain, orthopnea, PND, peripheral edema, syncope or claudication GASTROINTESTINAL - Denies nausea, vomiting, diarrhea, constipation, Denies abdominal pain, melena and or bright red blood GENITOURINARY - Denies dysuria, frequency of urination, urgency, or hesitancy MUSCULOSKELETAL - Denies joint or muscle pain, or back pain NEUROLOGICAL - Denies localized numbness, weakness, or tingling PSYCHIATRIC - Denies depression, anxiety, substance abuse or suicide attempts ENDOCRINE - Denies heat or cold intolerance, weight loss or gain, increasing thirst HEMATO-IMMUNOLOGIC - Denies easy bruising, bleeding, oral ulcerations or recurrent infections GENETICS SCREENING: Age 35+ years: Yes Thalassemia: No Neural Tube Defect: No Down Syndrome: No LALIT-SACHS: No Sickle Cell Disease: No Hemophilia: No Musc. Dystrophy: No Cystic Fibrosis: No-declines screening [place] Chorea: No Mental Retardation: No Fragile X: No Other genetic: No Other defects: No SABs/still births: No Drugs since LMP: No INFECTION HISTORY: High risk AIDS: No High risk Hepatitis: No Exposed to TB: No Exposed to Herpes: No Rash/viral illness since LMP: No History of STD: No MENSTRUAL HISTORY: *Menses Amount/Duration: 4 daysMenses Regularity: RegularMenarche (Age Onset): 13HCG+: 02/14/2017* PAST SUMMARY: PARITY: 1. Total Pregnancies............ 5 2. Full Term Pregnancies........ 3 3. Premature.................... 0 4. Abortions - Induced.......... 0 5. Abortions - Spontaneous...... 1 6. Ectopics..................... 0 7. Multiple Births.............. 0 8. Living Children.............. 3 PAST #1: Date of :.................. 12/25/11 Gestation Weeks:................ 39 Length of labor(hours):......... 12 Sex:............................ F Weight-lbs:............... 6 Weight-oz:................ 9 Type of Delivery:............... Vag Type of Anesthesia:............. Epidural Place of Delivery:.............. [place] Treatment of Labor?:.... No Comment: INDUCED PAST #2: Date of :.................. 09/25/13 Gestation Weeks:................ 39 Length of labor(hours):......... 3 Sex:............................ M Weight-lbs:............... 7 Weight-oz:................ 15 Type of Delivery:............... Vag Type of Anesthesia:............. Epidural Place of Delivery:.............. [place] Treatment of Labor?:.... No Comment: IOL PAST #3: Date of :.................. 10/01/17 Gestation Weeks:................ 39 Length of labor(hours):......... 6 Sex:............................ M Weight-lbs:............... 7 Weight-oz:................ 12 Type of Delivery:............... Vag Type of Anesthesia:............. Epidural Place of Delivery:.............. [place] Treatment of Labor?:.... No Comment: PAST #4: Date of :.................. 07/07/19 Gestation Weeks:................ 7 Length of labor(hours):......... 0 Sex:............................ Weight-lbs:............... 0 Weight-oz:................ 0 Type of Delivery:............... Sab Type of Anesthesia:............. None Place of Delivery:.............. none Treatment of Labor?:.... No Comment: PHYSICAL EXAMINATION General Appearence: 35 yo female in no acute distress Vital Signs: AF, VSS Heart: RRR without rubs or gallops Lungs: CTA x 2 Breasts: deferred Abdomen: gravid Pelvis: Cervix: Presentation: cephalic Station: Fetus: Size: AGA Movement: present Heart: present LAB TEST(S) ORDERED SINCE:11/17/19 01/28/2020 RUBELLA IGG ANTIBODY [CCL] 01/28/2020 RPR [CCL] 01/28/2020 HEPATITIS C AB IA W/CONFIRM [CCL] 01/28/2020 HEP B SURFACE AG [CCL] 01/25/2020 URINALYSIS 01/25/2020 TSH 01/25/2020 CBC + DIFF 01/25/2020 BB TYPE 01/03/2020 PAP IG W/REFLEX HR HPV APTIMA 12/31/2019 CHLAMYDIA/GC ADIEL APTIMA 07/22/2020 CULTURE, GROUP B STREPTOCOCCUS 05/25/2020 CBC + DIFF 05/23/2020 GLUCOSE CHALLENGE 50GM 1 HOUR == ==== Order Observation Description Value Ref_Range A* Site == ==== CULTURE, GROUP NOTE [facility] CBC + DIFF NOTE [facility] CBC + DIFF CBC + DIFF [facility] CBC-COMPLETE BLOOD COUNT CBC + DIFF WBC 9.8 x 10EE3/UL 4.5 - 10.8 [facility] CBC + DIFF RBC 3.79 x 10EE6/UL 4.10 - 5.30 L [facility] CBC + DIFF HEMOGLOBIN 11.9 g/dl 12.0 - 16.0 L [facility] CBC + DIFF HEMATOCRIT 34.3 % 34.0 - 46.0 [facility] CBC + DIFF MCV 91 fl 80 - 99 [facility] CBC + DIFF MCH 31 pg 27 - 33 [facility] CBC + DIFF MCHC 35 X10 3 32 - 36 [facility] CBC + DIFF RDW/CV 12.5 % 12.0 - 15.6 [facility] CBC + DIFF PLATELET 204 x10EE3/UL 150 - 450 [facility] CBC + DIFF MPV 8.9 fl 6.6 - 10.5 [facility] AUTOMATED DIFFERENTIAL CBC + DIFF NEUT % 79.1 % 46.0 - 76.0 H [facility] CBC + DIFF LYMPH % 15.7 % 20.0 - 45.0 L [facility] CBC + DIFF MONOS % 4.6 % 0.0 - 10.0 [facility] CBC + DIFF EO % 0.3 % 0.0 - 7.0 [facility] CBC + DIFF BASO % 0.3 % 0.0 - 2.0 [facility] CBC + DIFF LYMPH # 1.50 x10EE3/UL 0.80 - 2.80 [facility] CBC + DIFF NEUT # 7.80 x10EE3/UL 1.50 - 7.10 H [facility] CBC + DIFF MONO # 0.40 x10EE3/UL 0.20 - 1.00 [facility] CBC + DIFF EO # 0.00 x10EE3/UL 0.00 - 0.50 [facility] CBC + DIFF BASO # 0.00 x10EE3/UL 0.00 - 0.10 [facility] CBC + DIFF MANUAL DIFF N/A [facility] CBC + DIFF MORPHOLOGY N/A [facility] {CD] GLUCOSE CHALLEN NOTE [facility] GLUCOSE CHALLEN GLUCOSE CHALLENGE 50GM 1 [facility] GLUCOSE CHALLENGE 50 GMS 1 HOUR GLUCOSE CHALLEN GLUCOSE 1HR 116 mg/dl 70 - 140 [facility] RUBELLA IGG ANT NOTE [facility] RUBELLA IGG ANT [facility] IGG AB, QUAL Positive NEGAT A [facility] Sample is considered positive for IgG antibodies to rubella virus. A positive result indicates previous exposure to Rubella virus or vaccination. RUBELLA IGG ANT RUBELLA IGG AB 2.19 Indexlue [facility] Index values are interpreted as follows: Negative specimens <0.90 Equivocol specimens 0.90 to 0.99 Positive specimens >0.99 The magnitude of the measured result is not indicative of the amount of antibody present. [place] [id number] Otilio Jaquez III, M.D. [id number] HEPATITIS C AB NOTE [facility] HEPATITIS C AB HEPATITIS C AB IA Negative NEGAT [address] [address] Otilio Jaquez III, M.D. [id number] HEP B SURFACE A NOTE [facility] HEP B SURFACE A HEPATITIS B SURF. AG Negative NEGAT [address] [address] Otilio Jaquez III, M.D. [id number] RPR [CCL] NOTE [facility] RPR [CCL] RPR Non Reactive NR [facility] [address] [place] [address] Otilio Jaquez III, M.D. [id number] BB TYPE NOTE [facility] BB TYPE BB TYPE [facility] TYPE, Rh, AND SCREEN BB TYPE ABO O [facility] BB TYPE RH POS [facility] BB TYPE ANTIBODY SCR negative [facility] TSH NOTE [facility] TSH TSH 0.69 uIU/ml 0.34 - 5.60 [facility] URINALYSIS NOTE [facility] URINALYSIS URINALYSIS [facility] URINALYSIS SPECIMEN TYPE UNSPECIFIED [facility] URINALYSIS COLOR genaro NORMAL: YELLOW [facility] URINALYSIS CLARITY very cloudy NORMAL: CLEAR [facility] UR[facility]IS PH 5 NORMAL: 5.0-8.0 [facility] URINALYSIS PROTEIN NEG NORMAL: NEGATIV [facility] UR[facility]YSIS GLUCOSE NORM NORMAL: NORMAL [facility] URINALYSIS KETONE 5 NORMAL: NEGATIV A [facility] UR[facility]ALYSIS BILIRUBIN NEG NORMAL: NEGATIV [facility] URINALYSIS BLOOD NEG NORMAL: NEGATIV [facility] URINALYSIS UROBILINOG NORM NORMAL: NORMAL [facility] UR[facility]IS SP GRAVITY 1.025 NORMAL: 1.010-1 [facility] URINALYSIS NITRITE NEG NORMAL: NEGATIV [facility] URINALYSIS LEUKOCYTES 25 NORMAL: NEGATIV A [facility] URINALYSIS MICROSCOPIC SEE BELOW [facility] MICROSCOPIC URINALYSIS WBC NONE 0-5/hpf [facility] UR[facility]YSIS RBC NONE 0-3/hpf [facility] URINALYSIS CASTS NONE [facility] UR[facility]IS CRYSTALS NONE [facility] AMORPHOUS 4+ [facility] BACTERIA NONE [facility] EPI CELLS OCC [facility]IN[facility]YSIS MUCOUS NONE [facility] URINALYSIS YEAST NONE [facility] CBC + DIFF NOTE [facility] CBC + DIFF CBC + DIFF [facility] CBC-COMPLETE BLOOD COUNT CBC + DIFF WBC 9.9 x 10EE3/UL 4.5 - 10.8 [facility] CBC + DIFF RBC 4.28 x 10EE6/UL 4.10 - 5.30 [facility] CBC + DIFF HEMOGLOBIN 13.1 g/dl 12.0 - 16.0 [facility] CBC + DIFF HEMATOCRIT 38.5 % 34.0 - 46.0 [facility] CBC + DIFF MCV 90 fl 80 - 99 [facility] CBC + DIFF MCH 31 pg 27 - 33 [facility] CBC + DIFF MCHC 34 X10 3 32 - 36 [facility] CBC + DIFF RDW/CV 12.5 % 12.0 - 15.6 [facility] CBC + DIFF PLATELET 207 x10EE3/UL 150 - 450 [facility] CBC + DIFF MPV 10.3 fl 6.6 - 10.5 [facility] AUTOMATED DIFFERENTIAL CBC + DIFF NEUT % 73.3 % 46.0 - 76.0 [facility] CBC + DIFF LYMPH % 21.5 % 20.0 - 45.0 [facility] CBC + DIFF MONOS % 4.5 % 0.0 - 10.0 [facility] CBC + DIFF EO % 0.4 % 0.0 - 7.0 [facility] CBC + DIFF BASO % 0.3 % 0.0 - 2.0 [facility] CBC + DIFF LYMPH # 2.10 x10EE3/UL 0.80 - 2.80 [facility] CBC + DIFF NEUT # 7.30 x10EE3/UL 1.50 - 7.10 H [facility] CBC + DIFF MONO # 0.40 x10EE3/UL 0.20 - 1.00 [facility] CBC + DIFF EO # 0.00 x10EE3/UL 0.00 - 0.50 [facility] CBC + DIFF BASO # 0.00 x10EE3/UL 0.00 - 0.10 [facility] CBC + DIFF MANUAL DIFF N/A [facility] CBC + DIFF MORPHOLOGY N/A [facility] PAP IG W/REFLEX NOTE [facility] PAP IG W/REFLEX DIAGN Comment . LC NEGATIVE FOR INTRAEPITHELIAL LESION OR MALIGNANCY. THIS SPECIMEN WAS RESCREENED PART OF OUR RIB PULLER PROGRAM. PAP IG W/REFLEX ADEQ Comment . LC Satisfactory for evaluation. Endocervical and/or squamous metaplastic cells (endocervical component) are present. PAP IG W/REFLEX PERFORM Comment . DIOR Nelson, News Technical Director (ASC) PAP IG W/REFLEX QC REV Comment . DIOR Harmon, Supervisory News Technical Director (ASCP) PAP IG W/REFLEX TEST METHOD Comment . This liquid based ThinPrep(R) pap test was screened with the use of an image guided system. PAP IG W/REFLEX COMM . . PAP IG W/REFLEX PAPSMR Comment . LC The Pap smear is a screening test designed to aid in the detection of premalignant and malignant conditions of the uterine cervix. It is not a diagnostic procedure and should not be used as the sole means of detecting cervical cancer. Both false-positive and false-negative reports do occur. PAP IG W/REFLEX HPV RFLX Comment . The HPV DNA reflex criteria were not met with this specimen result therefore, no HPV testing was performed. Performed at: [address] [id number] Toll Gate Keeper: Chana Cardenas MD, Phone: [phone] CHLAMYDIA/GC NA NOTE [facility] CHLAMYDIA/GC NA CHLAMY,NUC ACID Negative Negative LC CHLAMYDIA/GC NA GC BY NUC ACID Negative Negative LC Performed at: = - [address] [id number] Toll Gate Keeper: Chana Cardenas MD, Phone: [phone] [facility] Culture Group B Beta Streptococcus is not isolated. == ==== Impression /Plan: 39 wks + 1 days intrauterine . Preparations in progress for delivery.
[2020-08-07] MEDS: Lactated Ringers 1,000 ML 50 ML IV (09:00)
[2020-08-07] MEDS: Oxytocin 30 units/NS 500 ml 30 UNITS/500 ML IV.SOLN IV (09:14)
[2020-08-07 09:16] LABS: Absolute Lymphocyte Count 1.69 X10^3/uL (0.83-4.51); Absolute Neutrophil Count 8.6 X10^3/uL (2.0-7.7); Basophil# 0.02 X10^3/uL; Basophil% 0.2 % (0-1); Eosinophil# 0.03 X10^3/uL; Eosinophils% 0.3 % (0-5); Hematocrit 36.6 % (37-47); Hemoglobin 12.1 g/dL (12.0-15.0); Lymphocyte # 1.69 X10^3/ul (0.83-4.51); Lymphocyte % 15.6 % (19-41); Mean Corp Hgb Conc 33.1 g/dL (32-36); Mean Corpuscular Hgb 30.6 pg (27.0-32.0); Mean Corpuscular Volume 92.4 fL (81-99); Mean Platelet Vol. 11.1 fl (6.2-12.0); Monocyte# 0.48 X10^3/uL; Monocyte% 4.4 % (0-10); NRBC Flagged by Analyzer 0 % (0-5); Neutrophil # 8.59 X10^3/uL (2.7-7.7); Platelet Count 206 K/mm3 (150-450); RBC Distribution Width CV 13.1 % (11.6-14.6); RBC Distribution Width SD 44.2 fl (35.1-43.9); Red Blood Count 3.96 M/mm3 (4.2-5.4); White Blood Count 10.9 K/mm3 (4.4-11.0)
[2020-08-07] MEDS: Lactated Ringers 500 ML 999 ML IV (09:28)
[2020-08-07] MEDS: fentaNYL-bupivacaine (epidural) 100 ML BAG EPIDURAL ×2 (10:30→14:41)
[2020-08-07] MEDS: Lactated Ringers 1,000 ML 200 ML IV ×2 (13:33→18:21)
[2020-08-07] MEDS: 0.9% Saline Lock 10 ML Syringe IV (13:42)
[2020-08-07] MEDS: Oxytocin 30 units/NS 500 ml 30 UNITS/500 ML IV.SOLN 334 UNITS IV (19:25)
--- NOTE | 2020-08-07 19:37 | PCM.OPRPT ---
Vaginal Delivery Maternal Presentation: Active Labor, Elective Induction Method of Induction: Pitocin Amniotic Membrane Rupture Type: Artificial Amniotic Fluid Description: Clear Final MIR: 08/13/20 Final MIR Source: US <20 weeks Gestational age: 39 Weeks and 1 Days Date of Procedure: 08/07/20 Pre-Operative Diagnosis: Term cervantes intrauterine Post-Operative Diagnosis: Term cervantes intrauterine Surgery/ Procedure Performed: Spontaneous Vaginal Delivery Type of Anesthesia: Epidural Description of Procedure: Spontaneous vaginal delivery of viable infant male. No nuchal cord. Baby to mom. HR at 80 bpm, cord clamped and cut, taken to warmer for resuscitation. Dialysis Clinical Manager present. APGARS 4/9. First degree laceration repaired in usual fashion, hemostatic. Spontaneous delivery of placenta. Arterial and venous blood cord gases sent. Baby to mom. EBL 350cc. Infant A gender: Male (1 minute): 4 (5 minute): 9
--- NOTE | 2020-08-07 19:41 | DCINST_ITS ---
Discharge Diet: No Restrictions Discharge Activity: Return to Normal Activity, No Restrictions, May Shower May resume sexual activity in: 4-6 weeks Weight Bearing Status: Weight bearing as tolerated Call your doctor if your incision/area has: Continuous Slow Oozing, Sudden Increased Bleeding Call your doctor if you observe: Fever of 101 or Higher, Inability to have a bowel movement, Using more than one pad per hour, Increased palpitations (irregular heartbeat), Calf discomfort, Uncontrolled pain Cleanse incision/area with: Soap & Water Additional Instructions: If you experience any of the following, contact your healthcare provider. * Bleeding that soaks a pad every hour for 2 hours * Fever 100.4 or higher * Unrelieved incision or abdominal pain * Swelling, redness, discharge or bleeding from your incision or episiotomy site * Your incision begins to separate * Problems urinating (including inability to urinate or burning while urinating). * Visual changes * Severe headache * Flu-like symptoms * Pain or redness in one of both of your breasts * Pain, warmth, tenderness or swelling in your legs, especially the calf area * Frequent nausea and vomiting * Symptoms of depression or anxiety If you experience any of the following, call 911 or go to the nearest Emergency Room. * Chest pain * Problems breathing * Seizure activity * Partial or complete paralysis of a body part, slurred speech, weakness or drooping of the face, or a sudden inability to walk or hold your balance Allergies/Adverse Reactions: Allergies No Known Allergies Allergy (Verified 08/07/20 08:12) Medications to take at Discharge Acetaminophen [Tylenol] 1,000 mg PO Q6H PRN PRN 10/01/17 Vits [Prenatabs FA ] 1 tablet PO DAILY 10/01/17 SimETHICONE [Mylicon] 80 mg PO PRN PRN 10/01/17 Please Follow Up With: Rito Carrizales MD When: 3 week telehealth, 6 week Primary Care Physician: Michoacano Jalloh MD [Primary Care Provider] - Test Results: Test results from this visit will be discussed in further detail at your follow- up appointment, if applicable.
[2020-08-07] MEDS: Ibuprofen 600 MG Tablet PO (20:31)
[2020-08-07] MEDS: Acetaminophen 500 MG Tablet 1000 MG PO (21:35)
[2020-08-07] MEDS: Dibucaine 30 GM Tube 1 APPLIC TOPICAL (21:36)
[2020-08-08] MEDS: Acetaminophen 500 MG Tablet 1000 MG PO ×3 (06:29→23:11)
[2020-08-08 08:00] VITALS: BP 107/77; PULSE 94; RESP 18; TEMP 36.8; O2SAT 97
[2020-08-08] MEDS: Ibuprofen 600 MG Tablet PO ×3 (08:41→21:06)
[2020-08-08 11:23] VITALS: BP 117/84; PULSE 95; RESP 16; TEMP 36; O2SAT 95
[2020-08-08 16:55] VITALS: BP 128/81; PULSE 94; RESP 18; TEMP 35.9; O2SAT 98
--- NOTE | 2020-08-08 17:54 | PCM.PN.OB ---
Subjective Subjective: Feeling well. Lochia minimal. Objective Data Objective Data Vital Signs: Vital Signs Temp Pulse Resp BP Pulse Ox 96.8 F L 95 16 117/84 H 95 08/08/20 11:23 08/08/20 11:23 08/08/20 11:23 08/08/20 11:23 08/08/20 11:23 Oxygen Delivery Method Room Air Weight: 238.2 kg Body Mass Index (BMI) 82.2 Intake & Output: Intake and Output for Last 24 Hours 08/06/20 08/07/20 08/08/20 23:59 23:59 23:59 Intake Total 2972.32 / 2972.32 Output Total 950 / 950 125 / 125 Balance 2021. / 2021. -125 / -125 Lab / Micro Data Result Diagrams: 08/07/20 09:00 Micro: Microbiology 08/07/20 07:31 Mucosa - Nose SARS-CoV-2 Antigen (Rapid) - Final Physical Exam Const alert, oriented x3 and no apparent distress HEENT normocephalic Resp normal respiratory effort and normal air movement Cardio regular rate GI GI Narrative: uterus 2 cm below umbilicus Palpation: soft Extremity no pedal edema Neuro oriented x3 and CN's II-XII intact bilaterally Assessment & Plan Assessment/Plan (1) state: Status: Acute Code(s): Z39.2 - Encounter for routine follow-up Plan: PPD#1 s/p . Baby had resuscitation at delivery, discussed again with ed and her . Baby doing well today. Home tomorrow.
[2020-08-08 20:01] VITALS: BP 124/84; PULSE 94; RESP 16; TEMP 36.1; O2SAT 97
[2020-08-09 00:22] VITALS: BP 113/66; PULSE 98; RESP 17; TEMP 36.3; O2SAT 97
[2020-08-09] MEDS: Ibuprofen 600 MG Tablet PO ×2 (02:47→10:18)
[2020-08-09 04:52] VITALS: BP 112/65; PULSE 80; RESP 18; TEMP 36.3; O2SAT 95
[2020-08-09 08:00] VITALS: BP 141/82; PULSE 92; RESP 16; TEMP 36.4
[2020-08-09] MEDS: Acetaminophen 500 MG Tablet 1000 MG PO (08:14)
--- NOTE | 2020-08-09 09:04 | PCM.PN.OB ---
Subjective Subjective: Patient without complaints. Showering. Minimal vaginal bleeding reported. Wants to go home today. Objective Data Objective Data Vital Signs: Vital Signs Temp Pulse Resp BP Pulse Ox 97.3 F L 80 18 112/65 95 08/09/20 04:52 08/09/20 04:52 08/09/20 04:52 08/09/20 04:52 08/09/20 04:52 Oxygen Delivery Method Room Air Weight: 525 lb 2.257 oz Body Mass Index (BMI) 82.2 Intake & Output: Intake and Output for Last 24 Hours 08/07/20 08/08/20 08/09/20 23:59 23:59 23:59 Intake Total 2972.32 / 2972.32 Output Total 950 / 950 125 / 125 Balance 2021. / 2021. -125 / -125 Lab / Micro Data Result Diagrams: 08/07/20 09:00 Micro: Microbiology 08/07/20 07:31 Mucosa - Nose SARS-CoV-2 Antigen (Rapid) - Final
--- NOTE | 2020-08-09 09:05 | PCM.PN.OB ---
Subjective Subjective: Patient without complaints. Showering. Wants to go home today. Objective Data Objective Data Vital Signs: Vital Signs Temp Pulse Resp BP Pulse Ox 97.3 F L 80 18 112/65 95 08/09/20 04:52 08/09/20 04:52 08/09/20 04:52 08/09/20 04:52 08/09/20 04:52 Oxygen Delivery Method Room Air Weight: 525 lb 2.257 oz Body Mass Index (BMI) 82.2 Intake & Output: Intake and Output for Last 24 Hours 08/07/20 08/08/20 08/09/20 23:59 23:59 23:59 Intake Total 2972.32 / 2972.32 Output Total 950 / 950 125 / 125 Balance 2021.32 / 2021. -125 / -125 Lab / Micro Data Result Diagrams: 08/07/20 09:00 Micro: Microbiology 08/07/20 07:31 Mucosa - Nose SARS-CoV-2 Antigen (Rapid) - Final Physical Exam Narrative Doing well day #2 status post routine spontaneous vaginal delivery. Will discharge to home with routine instructions.
[2020-08-09 10:00] VITALS: BMI 37.3
--- NOTE | 2020-08-09 10:00 | NURSING ---
Patient weight from 08/07/20 entered in error. Correct weight entered today on 08/09/20
== END 2020-08-09 10:55 | disposition home or self-care (01) | DRG 807 ==
PROVIDERS: Admitting Provider Student in an Organized Health Care Education/Training Program; PCP Family Medicine; Referring Provider Student in an Organized Health Care Education/Training Program; Visit Provider Student in an Organized Health Care Education/Training Program
DX: O70.0 First degree perineal laceration during delivery (principal); Z37.0 Single live birth; Z3A.39 39 weeks gestation of pregnancy
CPT/HCPCS: 59025; 59050; 85025; 86850; 86900; 86901; 87426; J7120; A4216

== ENCOUNTER → 2021-09-04 | Outpatient (CLI) | payer OTHER, SELFPAY ==
[2021-09-04 13:24] LABS: Hematocrit 44.1 % (37-47); Hemoglobin 14.4 g/dL (12.0-15.0); Mean Corp Hgb Conc 32.7 g/dL (32-36); Mean Corpuscular Hgb 30.3 pg (27.0-32.0); Mean Corpuscular Volume 92.8 fL (81-99); Mean Platelet Vol. 12.1 fl (6.2-12.0); Platelet Count 198 K/mm3 (150-450); RBC Distribution Width CV 11.9 % (11.6-14.6); Red Blood Count 4.75 M/mm3 (4.2-5.4)
[2021-09-04 13:39] LABS: Albumin, Serum 3.8 g/dL (3.2-5.0); BUN 18 mg/dL (7-18); BUN/Creat Ratio 20.9 RATIO (10-20); Creatinine, Serum 0.86 mg/dL (0.55-1.02); EST Glomerular Filtration Rate 78 mL/min (>60); Est Glom Filt Rate - Afr Amer 95 mL/min (>60); Glucose 84 mg/dL (74-106); Protein, Total 8.7 g/dL (6.4-8.2)
[2021-09-04 13:40] LABS: ALB/GLOB Ratio 0.8 RATIO (0.9-2.4); AST(SGOT) 11 U/L (15-37); Alanine Aminotransfer ALT/SGPT 20 U/L (13-56); Alkaline Phosphatase 63 U/L (45-117); Anion Gap 9 (5-15); Calcium,Total 9.5 mg/dL (8.5-10.1); Chloride 110 mmol/L (98-107); Estradiol 19.4 pg/mL; Follicle Stimulating Hormone 9.7 mIU/mL; Globulin 4.9 g/dL (2.2-4.2); Luteinizing Hormone 5.2 mIU/mL; Potassium 3.9 mmol/L (3.5-5.1); Sodium Level 141 mmol/L (136-145)
== END | disposition home or self-care (01) ==
LOC: WOBLAB 12:03
PROVIDERS: PCP Family Medicine; Visit Provider Obstetrics & Gynecology
DX: R10.2 Pelvic and perineal pain (principal)
CPT/HCPCS: 36415; 80053; 82670; 83001; 83002; 85027

== ENCOUNTER → 2021-11-20 | Outpatient (CLI) | payer OTHER, SELFPAY ==
[2021-11-20 09:53] LABS: Erythrocyte Sedimentation Rate 14 mm/hr (0-30)
[2021-11-20 09:56] LABS: Absolute Lymphocyte Count 2.04 X10^3/uL (0.83-4.51); Absolute Neutrophil Count 4.4 X10^3/uL (2.0-7.7); Basophil# 0.03 X10^3/uL; Basophil% 0.4 % (0-1); Eosinophil# 0.04 X10^3/uL; Eosinophils% 0.6 % (0-5); Hemoglobin 13.8 g/dL (12.0-15.0); Lymphocyte # 2.04 X10^3/ul (0.83-4.51); Lymphocyte % 30.2 % (19-41); Mean Corp Hgb Conc 34.5 g/dL (32-36); Mean Corpuscular Hgb 31.4 pg (27.0-32.0); Mean Corpuscular Volume 90.9 fL (81-99); Mean Platelet Vol. 10.8 fl (6.2-12.0); Monocyte# 0.24 X10^3/uL; Monocyte% 3.6 % (0-10); NRBC Flagged by Analyzer 0 % (0-5); Neutrophil # 4.39 X10^3/uL (2.7-7.7); Neutrophil % 64.9 % (47-70); Platelet Count 214 K/mm3 (150-450); RBC Distribution Width CV 11.9 % (11.6-14.6); White Blood Count 6.8 K/mm3 (4.4-11.0)
[2021-11-20 10:11] LABS: Prothrombin Time (Protime)PT. 12.6 SECONDS (11.7-14.9)
[2021-11-20 10:40] LABS: ALB/GLOB Ratio 0.8 RATIO (0.9-2.4); AST(SGOT) 12 U/L (15-37); Alanine Aminotransfer ALT/SGPT 20 U/L (13-56); Albumin, Serum 3.8 g/dL (3.2-5.0); Alkaline Phosphatase 67 U/L (45-117); Anion Gap 7 (5-15); BUN 12 mg/dL (7-18); BUN/Creat Ratio 15.9 RATIO (10-20); CRP 3.63 mg/L (0.0-3.0); Calcium,Total 8.7 mg/dL (8.5-10.1); Chloride 105 mmol/L (98-107); Creatinine, Serum 0.76 mg/dL (0.55-1.02); EST Glomerular Filtration Rate 91 mL/min (>60); Est Glom Filt Rate - Afr Amer 110 mL/min (>60); Ferritin 44 ng/mL (8-252); Globulin 4.9 g/dL (2.2-4.2); Glucose 87 mg/dL (74-106); LDH 137 U/L (84-246); Potassium 3.7 mmol/L (3.5-5.1); Protein, Total 8.7 g/dL (6.4-8.2); Sodium Level 137 mmol/L (136-145)
[2021-11-20 11:58] LABS: HIV - WCH Non-Reactive (Nonreactive)
[2021-11-21 14:09] LABS: Anti-Centromere B Ab <0.2 AI (0.0-0.9); Anti-Chromatin <0.2 AI (0.0-0.9); Anti-Jo <0.2 AI (0.0-0.9); Anti-Scleroderma-70 AB 0.6 AI (0.0-0.9); RNP Ab <0.2 AI (0.0-0.9); SJOGREN'S Anti-SS-A test < 0.2 AI (0.0-0.9); SJOGREN'S Anti-SS-B test < 0.2 AI (0.0-0.9); Smith Ab <0.2 AI (0.0-0.9)
[2021-11-21 16:33] LABS: Anti-Mitochondrial AB <20.0 Units (0.0-20.0); Anti-dsDNA Ab 4 IU/mL (0-9)
[2021-11-23 00:06] LABS: Angiotensin Convert Enzyme 32 U/L (14-82); Ceruloplasmin 44.5 mg/dL (19.0-39.0); Cytoplasmic Ab (C-ANCA) <1:20 titer (Neg:<1:20); HEPATITIS B SURFACE AG Negative (Negative); Hep C Antibodies <0.1 s/co ratio (0.0-0.9); Hepatitis A IgM Antibody Negative (Negative); Hepatitis B Core AB IgM Negative (Negative)
[2021-11-23 11:12] LABS: AFP, Tumor Marker < 0.9 ng/mL (0.0-6.4); Anti-Smooth Muscle ABS 7 Units (0-19); Copper, Serum or Plasma 193 ug/dL (80-158); Haptoglobin 186 mg/dL (33-278); Perinuclear Ab (P-ANCA) <1:20 titer (Neg:<1:20)
== END | disposition home or self-care (01) ==
LOC: LAB 09:24
PROVIDERS: PCP Family Medicine; Referring Provider Nurse Practitioner Adult Health; Visit Provider Nurse Practitioner Adult Health
DX: R68.81 Early satiety (principal); R10.11 Right upper quadrant pain; R14.0 Abdominal distension (gaseous); Z98.890 Other specified postprocedural states
CPT/HCPCS: 36415; 80053; 80074; 82105; 82140; 82164; 82390; 82525; 82728; 83010; 83036; 83516; 83615; 85025; 85610; 85652; 86140; 86225; 86235; 86256; 86703

== ENCOUNTER → 2021-11-21 | Outpatient (CLI) | payer OTHER, SELFPAY ==
--- NOTE | 2021-11-21 09:57 | US_ITS ---
STUDY: ABDOMINAL ULTRASOUND - RIGHT UPPER QUADRANT REASON FOR VISIT: Female, 36 years old RUQ pain, hx liver laceration/cautery -- RUQ TECHNIQUE: Ultrasound evaluation of the right upper quadrant was performed with real-time and static lindsey-scale imaging. TECHNICAL QUALITY: Adequate. COMPARISON: None. FINDINGS: Liver: The liver measures 15.2 cm. There is normal echogenicity of the liver. The bile ducts are within normal limits. There is hepatic color flow. The direction of portal flow is hepatopetal. There is no demonstrated mass lesion. Gallbladder: The patient is status post cholecystectomy. Common Bile Duct (C.B.D.): The common bile duct measures 3 mm. Pancreas: Normal size of the head, body and tail of the pancreas. There is normal echogenicity of the pancreas. There is no demonstrated pancreatic mass or cyst. Right Kidney: Normal size of the right kidney. The right kidney measures 12.1 cm x 6 cm x 4.3 cm. Normal renal cortex. The right cortex measures 1.8 cm. There is no demonstrated renal mass or cyst. There is no right hydronephrosis. US/Abdomen Limited IMPRESSION: Normal right upper quadrant ultrasound examination. The patient is status post cholecystectomy. Electronically Signed: Niko Donaldson MD at 12:10 EDT ,
== END | disposition home or self-care (01) ==
PROVIDERS: PCP Family Medicine; Visit Provider Nurse Practitioner Adult Health
DX: R10.11 Right upper quadrant pain (principal)
CPT/HCPCS: 76705

== ENCOUNTER → 2021-12-06 | Outpatient (CLI) | payer OTHER, SELFPAY ==
--- NOTE | 2021-12-06 11:43 | NM_ITS ---
CLINICAL: 36-year-old female with history of abdominal pain-bloating, early satiety. SEMI-SOLID PHASE 99m Tc SULFUR COLLOID GASTRIC EMPTYING STUDY COMPARISON: Abdominal ultrasound report 11/21/2021 FINDINGS: The patient was administered 1.1 mCi of 99m Tc sulfur colloid mixed with oatmeal and consumed per os. Image acquisitions in the anterior-posterior projections were obtained for 60 minutes. There is prompt visualization of the stomach. There is no gastroesophageal reflux identified. First order kinetics are maintained throughout the duration of the acquisitions. The T ? linear fit was calculated to be 84.84 minutes, (Normal: 12-56 minutes). NM/Gastric Emptying Study IMPRESSION: 1. ABNORMAL 99m Tc sulfur colloid semi-solid phase (oatmeal) gastric emptying imaging examination. A. There is delayed semi-solid phase gastric emptying compared to normal controls. (Clare et al, J Nucl Med Tech 38: 186, 2010). Electronically Signed: Gonzalo Alicia, at 16:21 EDT ,
== END | disposition home or self-care (01) ==
LOC: NM 11:40
PROVIDERS: PCP Family Medicine; Referring Provider Nurse Practitioner Adult Health; Visit Provider Nurse Practitioner Adult Health
DX: R68.81 Early satiety (principal); R10.11 Right upper quadrant pain; R14.0 Abdominal distension (gaseous); Z98.890 Other specified postprocedural states
CPT/HCPCS: 78264; A9541

== ENCOUNTER → 2022-01-04 | Outpatient (CLI) | payer OTHER, SELFPAY ==
--- NOTE | 2022-01-04 08:29 | CT_ITS ---
STUDY: CT ABDOMEN AND PELVIS WITH CONTRAST REASON FOR EXAM: Female, 36 years old. Right upper quadrant pain, previous cholecystectomy RADIATION DOSAGE (If Supplied By Facility): CTDIvol = ( 12.27 ) mGy, DLP = ( 1097.05 ) mGycm TECHNIQUE: Transaxial images were obtained from the dome of the diaphragm to the symphysis pubis with oral contrast. Oral and amp; IV Readi-CAT and amp; 100mL Isovue-370 was administered. Sagittal and coronal images were reconstructed. Individualized dose optimization techniques were used for this CT. COMPARISON: None. FINDINGS: The visualized lung bases are unremarkable. The visualized portions of the heart are within normal limits. Normal liver. There are surgical clips in the gallbladder fossa consistent with a prior cholecystectomy. Normal spleen, there is a 1 cm accessory spleen.. Normal pancreas. Normal bilateral adrenal glands. Normal right kidney. Normal left kidney. Normal visualized stomach. Normal small intestine. Normal colon. The appendix is visualized and appears normal. Appendix seen on coronal oblique images 55 through 67 Normal abdominal aorta. Normal inferior vena cava. Normal retroperitoneum. Normal urinary bladder. Normal visualized uterus. Normal abdominal wall. Normal osseous structures. CT/Abdomen/Pelvis WITH Contrast IMPRESSION: No suspicious solid organ abnormality, specifically, no hepatic lesion. Previous cholecystectomy No free intraperitoneal fluid, air, or suspicious adenopathy. Normal appendix visualized Electronically Signed: James Moffett MD at 9:19 EDT ,
== END | disposition home or self-care (01) ==
LOC: CT 08:29
PROVIDERS: PCP Family Medicine; Referring Provider Nurse Practitioner Adult Health; Visit Provider Nurse Practitioner Adult Health
DX: R10.11 Right upper quadrant pain (principal); R10.816 Epigastric abdominal tenderness; R68.81 Early satiety; R14.0 Abdominal distension (gaseous); Z87.828 Personal history of other (healed) physical injury and trauma
CPT/HCPCS: 74177; Q9967

== ENCOUNTER → 2022-02-18 | Outpatient (CLI) | payer OTHER, SELFPAY ==
--- NOTE | 2022-02-18 08:56 | US_ITS ---
STUDY: ULTRASOUND BREAST - RIGHT REASON FOR EXAM: Female, 36 years old. Pain in the right breast. TECHNIQUE: Axial and longitudinal images of the RIGHT breast were performed with a high resolution ultrasound transducer. # OF IMAGES: 42 COMPARISON: Comparison is made with prior mammogram done earlier in the day. FINDINGS: RIGHT Breast: There is heterogeneously dense breast tissue. The area of pain corresponds to a 1.4 cm x 1.4 cm x 0.5 cm benign appearing axillary lymph node. US/Breast Limited Unilateral IMPRESSION: The area of the pain corresponds to a 1.4 cm x 1.4 cm x 0.5 cm benign appearing axillary lymph nodes. ASSESSMENT CATEGORY: BIRADS Category 2: Benign. A letter regarding these results will be sent to the patient by the facility within 30 days. Electronically Signed: Niko Donaldson MD at 14:36 EST ,
--- NOTE | 2022-02-18 08:56 | BI_ITS ---
MAMMOGRAPHY - BILATERAL DIAGNOSTIC REASON FOR EXAM: Female, 36 years old. Right upper outer quadrant breast pain. PERTINENT HISTORY: Aunt with breast cancer. TECHNIQUE: Digital bilateral breast erna (3D mammographic acquisition) in the CC and MLO projections. 2-D mediolateral oblique (MLO) and craniocaudad (CC) views of both breasts were obtained. CAD: Full Field Digital Mammography with Computer Added Detection was performed. COMPARISON: None. Baseline examination. FINDINGS: Breast Composition: The breasts are heterogeneously dense, which may obscure small masses. There are no dominant masses or suspicious calcifications. No other significant abnormalities are identified. BI/DIAG MAMM W/CAD, BILAT IMPRESSION: Negative diagnostic mammogram. With the patient''s history of pain in the upper-outer quadrant of the right breast, correlation with ultrasound is recommended. ASSESSMENT CATEGORY: BIRADS Category 0: Incomplete. Need additional imaging evaluation. A letter regarding these results will be sent to the patient by the facility within 30 days. Approximately 10% of breast cancers are not detected by mammography. A normal mammogram should not delay biopsy of a clinically suspicious abnormality. Electronically Signed: Niko Donaldson MD at 9:57 EST ,
== END | disposition home or self-care (01) ==
LOC: OPBI 08:54
PROVIDERS: PCP Family Medicine; Visit Provider Obstetrics & Gynecology
DX: N64.4 Mastodynia (principal)
CPT/HCPCS: 76642; 77062; 77066; G0279

== ENCOUNTER 2022-02-25 10:01 | Day surgery (SDC) | payer OTHER, SELFPAY ==
[2022-02-25] VITALS (7 sets, daily range): BP systolic 95–132; BP diastolic 79–94; PULSE 78–96; RESP 16–17; TEMP 36.7–37.5; O2SAT 96–100; BMI 32.7
--- NOTE | 2022-02-25 | IMM_PTH ---
PATIENT: EARL JACKSON LOC: EN U#:[id number] AGE/SX: 36/F ROOM: RE02/25/[address]: Dr. Anupam Silva DO : 1985 BED: DIS: 02/25/2022 SPEC #: [id number] RECD: 02/26/22 11:56 STATUS: RODO RERob #: [id number] SURJIT: 02/25/22 00:[address]: Anupam Silva DEPT: IMMUNOHISTOCHEMISTRY RECD BY: Johanny Rich ENTERED: 02/26/22 11:57 SP TYPE: IMMUNO OTHR DR: Dr. Dick Agrawal MD Tissues: Pyloric sphincter Procedures: H Pylori (initial) PHYSICIAN & INSTITUTION [place] [id number] SPECIMEN INFORMATION: Tissue Source: B. Pyloric sphincter biopsy Clinical Info: Gastroparesis, GERD Specimen Number: [id number] CPT code: 66498 METHODOLOGY: Deparaffinized sections of prefer/formalin-fixed tissue or PAP/DQ stained slides are incubated with monoclonal/polyclonal antibodies/oligonucleotide probes. Localization is made via biotin free immunoperoxidase method. Appropriate controls are performed and reacted as expected. Results on target cell population are indicated in the following table: RESULTS: ANTIBODY / CLONE RESULT H Pylori (polyclonal) negative These tests were developed and their performance characteristics determined by [facility]. They may not have been cleared or approved by the U.S. Food and Drug Administration. The FDA has determined that such clearance or approval is not necessary. The above immunohistochemical/dualISH markers are ordered and reviewed by the Pathologist. INTERPRETATION: Pyloric sphincter biopsy: Negative for Helicobacter pylori organisms. /SJ :junito 02/27/2022
--- NOTE | 2022-02-25 | EGD_PTH ---
PATIENT: EARL JACKSON LOC: EN U#:[id number] AGE/SX: 36/F ROOM: RE02/25/[address]: Dr. Anupam Silva DO : 1985 BED: DIS: 02/25/2022 SPEC #: [id number] RECD: 02/25/22 14:10 STATUS: RODO JOSE #: [id number] SURJIT: 02/25/22 00:[address]: Anupam Silva DEPT: SURGICAL PATHOLOGY RECD BY: Rambo Ennis ENTERED: 02/25/22 14:10 SP TYPE: EGD BIOPSY OT DR: Dr. Dick Agrawal MD Tissues: A - Duodenum, NOS B - Pyloric sphincter C - Esophageal mucous membrane Procedures: Special Stain Group II Surgery Specimen Level IV Alcian Blue/PAS (control) HEADER OPERATION: EGD ([facility]) with biopsies PRE-OP DIAGNOSIS: Gastroparesis, GERD TISSUE SUBMITTED: A. Duodenum biopsy, B. Pyloric sphincter biopsy, C. Distal esophagus biopsy MICROSCOPIC DIAGNOSIS A. Duodenum biopsy: Fragments of duodenal mucosa, no pathologic diagnosis. B. Pyloric sphincter biopsy: Mild gastritis. See microscopic description and comment. C. Distal esophagus biopsy: Fragments of gastroesophageal mucosa with chronic inflammation. Intestinal metaplasia (goblet cell metaplasia) not identified. See comment. /JESUS 02/26/22 COMMENT B. The results of immunohistochemistry for Helicobacter pylori will be reported separately ([id number]). C. Alcian blue/PAS stain with matched control is used in the evaluation of the specimen. MICROSCOPIC DESCRIPTION Slides are reviewed. The specimen shows fragments of gastric mucosa with chronic inflammatory cell infiltrates in the lamina propria consisting of lymphocytes and plasma cells, consistent with mild chronic gastritis. GROSS DESCRIPTION A. Received is one container labeled with the patient name and designated duodenum. The specimen consists of multiple irregular fragments of light gavin soft tissue that in aggregate measure 0.9 x 0.3 x 0.1 cm. The specimen is totally submitted in one cassette. B. Received is one container labeled with the patient name and designated pyloric sphincter. The specimen consists of one irregular fragment of light gavin soft tissue that measures 0.7 x 0.3 x 0.1 cm. The specimen is totally submitted in one cassette. C. Received is one container labeled with the patient name and designated distal esophagus. The specimen consists of multiple irregular fragments of light gavin soft tissue that in aggregate measure 1.0 x 0.4 x 0.1 cm. The specimen is totally submitted in one cassette. /SJ:cc 02/25/22 TC:3 CPT:82281 x3, [id number]
[2022-02-25] MEDS: Lactated Ringers 1,000 ML 15 ML IV (10:45)
--- NOTE | 2022-02-25 11:10 | PCM.HP.BLA ---
History and Physical Date of Admission: 02/25/22 36 F who presents to the office today for 6 wk f/u chronic RUQ pain, epigastric tenderness on exam, early satiety, nausea especially after supper, upper abd bloating. Hx of liver injury during cholecystectomy which caused a bile leak, sepsis. At her initial visit on 11/20/21 we started her on pantoprazole 40 mg QAM; she reports significant improvement in early satiety, stomach discomfort, acid reflux, heartburn, gas, bloating, nausea. Hasn't needed pepto, gas-x, or as much tylenol. No nausea unless she eats later at night. Plans to work on improving diet. Still has pain on right side, flares with menses. We did full biochemical w/u related to liver. Labs indicated inflammation related to liver (elevated CRP, ceruloplasmin, copper, protein). All imaging was normal except for delayed gastric emptying study. RUQ US normal, MRCP normal, CT abd pel normal. She is scheduled for EGD on 02/14/22. She established with GI on 11/20/21 for abdominal pain, nausea, early satiety, upper abdominal bloating. Her hx is significant for perioperative laceration of liver during cholecystectomy in Spring 2020, causing bile leak and sepsis. She was treated at [facility]; she reports the liver was cauterized--that surgeon told her she will have chronic pain due to the damage to the liver. She had an ERCP, temporary biliary stent, which was then removed in 10/2020. She had just delivered her 4th baby several days before needing cholecystectomy. She lost 50 lbs in first 2 mos after surgery, couldn't eat due to pain. Abdominal pain continues but she is learning to live with it. She is seeing a counselor which is helpful in dealing with the trauma of this event and with the pain. The therapist is helping her with eating issues also; has some lingering problems with eating since pain became affiliated with food. Pain is right side, goes from under the bra down to the mid point between ribs and hip; the worst pain is lateral to the right breast, sharp at its worst, otherwise nagging ache. Can be worse with fatty foods. Worse with menses. She was getting nausea after eating, especially after supper; was having heartburn and gas; was getting acid up to the back of her throat; was waking in night with nausea and upset stomach. Normal formed stool. BM typically once a day, occas twice a day. Eats lots of fruits and vegetables which helps keep her regular. No melena or hematochezia. Has been getting her period every 2 wks since her surgeries, despite being on OCP. She was evaluated by [employer] Dr Swartz, no worrisome findings per patient. 11/21/21 US/Abdomen Limited IMPRESSION: Normal right upper quadrant ultrasound examination. The patient is status post cholecystectomy. ? 12/06/21 NM/Gastric Emptying Study IMPRESSION: 1. ABNORMAL 99m Tc sulfur colloid semi-solid phase (oatmeal) gastric emptying imaging examination. A.? There is delayed semi-solid phase gastric emptying compared to normal controls.? (Clare et al, J Nucl Med Tech? 38: 186, 2010). The T ? linear fit was calculated to be 84.84 minutes, (Normal: 12-56 minutes). 01/04/22 CT/Abdomen/Pelvis WITH Contrast IMPRESSION: No suspicious solid organ abnormality, specifically, no hepatic lesion. Previous cholecystectomy No free intraperitoneal fluid, air, or suspicious adenopathy.? Normal appendix visualized ROS Const Constitutional: No fatigue ENT ENT: No difficulty swallowing Gastro GI: Positive for abdominal pain, bloating and excessive flatus; No belching, change in bowel habits, change in stool character, coffee ground emesis, constipation, cramping, diarrhea, heartburn, difficulty swallowing, feeling full early, incontinent of stools, Vomiting blood/hematemesis, Blood in stool, loose stools, Black,tarry stools, nausea/dyspepsia, pain with swallowing, vomiting or other Musc Musculoskeletal: No joint pain Skin Skin: No yellowing of the eye or itchy eyes Psych Psychiatric: No anxiety and No depression Endo Endocrine: No fatigue Aller/Imm Allergy/Immunologic: No itchy eyes Sg/Lymp Hematologic/Lymphatic: No easy bleeding or easy bruising Exam Const General: cooperative, comfortable and no acute distress Nutritional Appearance: obese Orientation: alert, awake and oriented x3 Resp Effort & Inspection: normal respiratory effort GI Inspection: obesity Palpation: soft, no hepatosplenomegaly, no masses and nontender Musc Other: tender right anterolateral costochondral junctions Quality Reporting Tobacco Screening ([facility] 138) Smoking Status: Never smoker Assessment and Plan Assessment and Plan (1) Gastroparesis: ?Status:?Acute ?Plan: 36 yr old female with hx of chronic RUQ pain, epigastric tenderness, early satiety, nausea especially after supper, upper abd bloating. Hx of liver injury during cholecystectomy which caused a bile leak, sepsis; treated with cautery of liver, and temporary biliary stent.?Symptoms under very good control with addition of pantoprazole. On exam the only tenderness she has today is rib/cartilage. We reviewed all of her results--normal CT, nl RUQ US, nl MRCP, +delayed gastric emptying. Continue pantoprazole 40 mg qam--significant improvement in her GI symptoms. Considered trying 5 days of azithromycin 500 mg daily to be followed by 30 days of doxycycline, but not needed at this time since symptoms are so much better on just PPI; if she has a return of early satiety, nausea, gas, bloat then will do additional treatment. Appears to have right-sided costochondritis--treat with antiinflammatory, ice/heat, anti-inflammatory diet. She plans to focus on improving her diet Keep appt for EGD in February and then 2 wk f/u Consider repeat labs to reeval liver, had elevated CRP, copper, ceruloplasmin, protein. Consider if elastography needed. (2) GERD (gastroesophageal reflux disease): ?Status:?Acute ?Plan: I have examined the patient and the H&P has been reviewed. There are no clinical changes since date of exam.
--- NOTE | 2022-02-25 11:28 | OP.CCLET_ITS ---
02/25/2022 Dick Agrawal Re : Upper GI endoscopy procedure for Pato Agrawal This procedure was performed on Friday, February 25, 2022. My impressions and recommendations are as follows: Impressions : - Z-line irregular, 36 cm from the incisors. Biopsied. - Erythematous mucosa in the pylorus. Biopsied. - Erythematous duodenopathy. Biopsied. Recommendations : - Discharge patient to home. - Resume previous diet. - Continue present medications. - Await pathology results. -Repeat copper level and ceruloplasmin -Check ferritin and haptoglobin level -Check hemoglobin A1c My findings are described in the full procedure note, which is enclosed. If I can be of further assistance, please feel free to contact me at . Sincerely, Anupam Friend, 02/25/2022 11:28:24 AM This report has been signed electronically.
--- NOTE | 2022-02-25 11:28 | OP.EGD_ITS ---
Patient Name: Pato Oswald Procedure Date: 02/25/2022 11:00 AM Date of : 1985 Age: 36 Procedure: Upper GI endoscopy Indications: Functional Dyspepsia, Failure to respond to medical treatment Providers: Anupam Silva DO Patient Profile: This is a 36 year old female. Refer to note in patient chart for documentation of history and physical. Patient has symptoms of chronic abdominal distention, chronic epigastric abdominal pain, chronic dyspepsia and chronic nausea. Complications: No immediate complications. Procedure: Pre-Anesthesia Assessment: - Prior to the procedure, a History and Physical was performed, and patient medications and allergies were reviewed. The patient is competent. The risks and benefits of the procedure and the sedation options and risks were discussed with the patient. All questions were answered and informed consent was obtained. Patient identification and proposed procedure were verified by the physician in the pre-procedure area. Mental Status Examination: alert and oriented. Airway Examination: normal oropharyngeal airway and neck mobility. Respiratory Examination: clear to auscultation. CV Examination: normal. Prophylactic Antibiotics: The patient does not require prophylactic antibiotics. Prior Anticoagulants: The patient has taken no previous anticoagulant or antiplatelet agents. ASA Grade Assessment: II - A patient with mild systemic disease. After reviewing the risks and benefits, the patient was deemed in satisfactory condition to undergo the procedure. The anesthesia plan was to use monitored anesthesia care (MAC). Immediately prior to administration of medications, the patient was re-assessed for adequacy to receive sedatives. The heart rate, respiratory rate, oxygen saturations, blood pressure, adequacy of pulmonary ventilation, and response to care were monitored throughout the procedure. The physical status of the patient was re-assessed after the procedure. After obtaining informed consent, the endoscope was passed under direct vision. Throughout the procedure, the patient's blood pressure, pulse, and oxygen saturations were monitored continuously. The gastroscope was introduced through the mouth, and advanced to the second part of duodenum. The upper GI endoscopy was accomplished without difficulty. The patient tolerated the procedure well. Scope In: 11:13:41 AM Scope Out: 11:17:21 AM Total Procedure Duration Time 0 hours 3 minutes 40 seconds Findings: The Z-line was irregular and was found 36 cm from the incisors. Biopsies were taken with a cold forceps for histology. Verification of patient identification for the specimen was done. Biopsies for histology were taken with a cold forceps for evaluation of celiac disease. Verification of patient identification for the specimen was done. Estimated blood loss was minimal. Patchy mildly erythematous mucosa without bleeding was found at the pylorus. Biopsies were taken with a cold forceps for histology. Verification of patient identification for the specimen was done. Estimated blood loss was minimal. Patchy mildly erythematous mucosa without active bleeding and with no stigmata of bleeding was found in the first portion of the duodenum. Biopsies were taken with a cold forceps for histology. Verification of patient identification for the specimen was done. Estimated blood loss was minimal. Impression: - Z-line irregular, 36 cm from the incisors. Biopsied. - Erythematous mucosa in the pylorus. Biopsied. - Erythematous duodenopathy. Biopsied. Recommendation: - Discharge patient to home. - Resume previous diet. - Continue present medications. - Await pathology results. -Repeat copper level and ceruloplasmin -Check ferritin and haptoglobin level -Check hemoglobin A1c Procedure Code(s): --- Professional --- 09828, Esophagogastroduodenoscopy, flexible, transoral; with biopsy, single or multiple CPT copyright 2017 [employer]. All rights reserved. The codes documented in this report are preliminary and upon cane flume feeding machine operator review may be revised to meet current compliance requirements. Anupam Silva DO 02/25/2022 11:28:24 AM This report has been signed electronically. Number of Addenda: 0 Note Initiated On: 02/25/2022 11:00 AM
== END 2022-02-25 12:08 | disposition home or self-care (01) ==
LOC: EN 10:02 → AC 10:04
PROVIDERS: PCP Family Medicine; Referring Provider Family Medicine; Visit Provider Internal Medicine Gastroenterology
PROC: 0DJ08ZZ Inspection of Upper Intestinal Tract, Via Natural or Artificial Opening Endoscopic (ICD-10-PCS; CPT 43235; principal; 2022-02-25 12:55)
DX: K21.00 Gastro-esophageal reflux disease with esophagitis, without bleeding (principal); K31.89 Other diseases of stomach and duodenum; K29.50 Unspecified chronic gastritis without bleeding; E66.9 Obesity, unspecified; F41.9 Anxiety disorder, unspecified; Z79.899 Other long term (current) drug therapy; Z68.32 Body mass index [BMI] 32.0-32.9, adult
CPT/HCPCS: 43239; 88305; 88313; 88342; J7120; J2405

== ENCOUNTER → 2023-07-02 | Outpatient (CLI) | payer OTHER, SELFPAY ==
--- NOTE | 2023-07-02 07:33 | BI_ITS ---
MAMMOGRAPHY - BILATERAL SCREENING REASON FOR EXAM: Female, 38 years old. Routine annual screening examination. PERTINENT HISTORY: Grandmother with breast cancer. Aunt with breast cancer. TECHNIQUE: Digital bilateral breast cameron (3D mammographic acquisition) in the CC and MLO projections. 2-D mediolateral oblique (MLO) and craniocaudad (CC) views of both breasts were obtained. CAD: Full Field Digital Mammography with Computer Added Detection was performed. COMPARISON: Comparison is made with prior study dated February 18, 2022. FINDINGS: Breast Composition: There are scattered areas of fibroglandular density. There are no dominant masses or suspicious calcifications. No other significant abnormalities are identified. There has been no significant change since the prior study. BI/SCRN MAMM (CAD)W/CAMERON BILAT IMPRESSION: Stable bilateral screening mammogram. Yearly follow-up mammogram recommended. (A) ASSESSMENT CATEGORY: BIRADS Category 1: Negative. A letter regarding these results will be sent to the patient by the facility within 30 days. Approximately 10% of breast cancers are not detected by mammography. A normal mammogram should not delay biopsy of a clinically suspicious abnormality. [id number] Electronically Signed: Niko Donaldson MD at 8:32 EDT ,
== END | disposition home or self-care (01) ==
LOC: OPBI 07:33
PROVIDERS: PCP Family Medicine; Referring Provider Nurse Practitioner Women's Health; Visit Provider Nurse Practitioner Women's Health
DX: Z12.31 Encounter for screening mammogram for malignant neoplasm of breast (principal); Z80.3 Family history of malignant neoplasm of breast
CPT/HCPCS: 77063; 77067

== ENCOUNTER 2023-08-25 05:27 | Day surgery (SDC) | payer OTHER, SELFPAY ==
--- NOTE | 2023-08-19 06:57 | EKG12_ITS ---
Test Reason : PRE-OP Blood Pressure : / mmHG Vent. Rate : 089 BPM Atrial Rate : 089 BPM P-R Int : 120 ms QRS Dur : 088 ms QT Int : 354 ms P-R-T Axes : 061 033 017 degrees QTc Int : 430 ms Normal sinus rhythm with sinus arrhythmia Normal ECG Confirmed by GALLO ONEIL, ARNOLDO ([id number]), industrial editor CHUYITA JONES ([id number]) on 08/20/2023 11:24:01 AM Referred By: Michoacano Pollard Confirmed By:ARNOLDO HOLDER MD
[2023-08-19 08:38] LABS: Hemoglobin 13.8 g/dL (12.0-15.0); Mean Corp Hgb Conc 32.9 g/dL (32-36); Mean Corpuscular Hgb 29.5 pg (27.0-32.0); Mean Corpuscular Volume 89.7 fL (81-99); Mean Platelet Vol. 10.9 fl (6.2-12.0); Platelet Count 255 K/mm3 (150-450); RBC Distribution Width CV 12.1 % (11.6-14.6); RBC Distribution Width SD 39.5 fl (35.1-43.9); Red Blood Count 4.68 M/mm3 (4.2-5.4); White Blood Count 8.7 K/mm3 (4.4-11.0)
[2023-08-19 09:21] LABS: Anion Gap 4 (5-15); BUN 10 mg/dL (7-18); BUN/Creat Ratio 14.7 RATIO (10-20); Calcium,Total 9.3 mg/dL (8.5-10.1); Chloride 108 mmol/L (98-107); Creatinine, Serum 0.68 mg/dL (0.55-1.02); EST Glomerular Filtration Rate 102 mL/min (>60); Est Glom Filt Rate - Afr Amer 123 mL/min (>60); Glucose 93 mg/dL (74-106); Potassium 3.7 mmol/L (3.5-5.1); Sodium Level 138 mmol/L (136-145)
[2023-08-25 06:17] VITALS: BP 106/73; PULSE 95; RESP 16; TEMP 37; O2SAT 100; BMI 32.9
[2023-08-25] MEDS: Lactated Ringers 1,000 ML 15 ML IV ×2 (06:20→10:08)
[2023-08-25 06:24] LABS: Internal QC Validated? YES +Cl - CLEAR BKGD; Pregnancy, Urine Negative Negative; Record Kit Lot#,Urine Preg HCG0000718089
--- NOTE | 2023-08-25 06:44 | PCM.HP.BLA ---
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 Is patient in pain?: No Allergies No Known Allergies Allergy (Verified 08/12/23 14:04) Medications norethindrone (contraceptive) 0.35 mg tablet (Jencycla) 0.35 mg PO DAILY #84 tabs 06/26/23 [Rx Confirmed 08/12/23] PFSH Medical History Anxiety Gastric reflux Heart palpitations History of biliary stent insertion History of liver injury Non-smoker Obesity Sepsis Surgical History Hx laparoscopic cholecystectomy Hx of cholecystectomy Hx of endoscopic retrograde cholangiopancreatography Hx of wisdom tooth extraction Family History Aunt Breast cancer MaternalAunt Breast cancer MaternalGrandmother Breast cancer Great-grandmother MaternalGrandmother Cancer Great-Grandmother- UterineMother Endometriosis Social History household members: spouse current occupational status: employed current occupation: [employer] Smoking Status: Never smoker alcohol intake: never substance use type: does not use seatbelt use: always do you feel safe at home: Yes 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 Pollard. Patient denies any hospitalizations or illnesses since her last office in November of 2022. Patient denies any medication changes. She denies any cardiac or pulmonary history. She denies any previous complications with anesthesia. Patient notes increased discomfort at the hernia site. She notes that her bowel habits have not changed. She notes increased gas production which causes pressure on the hernia. Patient's previous history per Dr. Pollard: 37-year-old female is referred for surgical consultation regarding abdominal pain and an umbilical hernia. The patient is referred by Dr. Anupam Silva local gastroenterology and a written copy my surgical consult recommendations will return to him. Dr. Silva has been seen the patient because of upper abdominal pain nausea early satiety and bloating. Apparently she has had a previous cholecystectomy that resulted in a hepatic laceration and bile leak. The patient's had a upper endoscopy on February 25, 2022 showing some mild gastritis and some mild reflux esophagitis. A previous abdominal CT scan of January 04, 2022 demonstrated evidence of a previous cholecystectomy with what is said to be no acute findings. The abdominal wall was said to be normal however I have personally reviewed these images and there is clearly a a hernia located at the umbilicus at that time with fatty tissue involvement. The patient has been seen by Dr. Anupam Silva. She states that ever since she had her laparoscopic cholecystectomy 2020 with the liver laceration bile sepsis that she has had chronic right upper quadrant pain. She states that she has been instructed that she will always have pain. She was evaluated by [facility] Dr. Omar Swartz because the patient states that her menstrual cycles has been off ever since that surgery. She tells me that a pelvic ultrasound was okay and that she did have laboratory check including hormonal levels and that they were okay. Apparently there was a change in her oral contraceptive pills which has helped but now may be once again she is having periods every other week. She has had problems with right lower quadrant pain. Her most recent CT scan was the one mentioned in December 2021. She claims that she notes that she does have umbilical pain particularly after eating greasy foods. She complains of bloating. She states that if she overeats she will have discomfort at the umbilicus ROS General General: No weight change, appetite, fatigue, colon cancer, breast cancer or weakness HEENT HEENT: No difficulty swallowing, eye injury, eye surgery, swollen glands or hoarseness Endo Endocrine: No thyroid disease, diabetes mellitus, thyroid cancer, Hair loss, heat intolerance or cold intolerance Skin Skin: No rash or changing moles Breast Breast: No left breast lump, right breast lump, nipple discharge, breast pain, abnormal mammogram, abnormal US or breast enlargement Musc Musculoskeletal: No back problems, arthritis, rheumatoid arthritis, gout or joint pain Cardio Cardiovascular: No murmur, pacemaker, heart disease, atrial fibrillation, high blood pressure, heart attack, heart stent, palpitations, shortness of breat with exertion or chest pain Psych Psychiatric: No depression, anxiety or hearing voices Resp Respiratory: No shortness of breath, No sleep apnea, No cough, No COPD, No asthma, No emphysema and No wheezing Gastro Gastrointestinal: Yes abdominal pain, No nausea or vomiting, No diarrhea, No constipation, No blood in stool, No acid reflux, No hemorrhoids, No ulcers, Yes gallbladder problem and No black,tarry stools Sg Hematologic: No blood thinners, No blood disorders, No bleeding, No anemia and No blood clots Neuro Neurologic: No system reviewed and no additional complaints, except as documented, No as per HPI, No abnormal gait, No abnormal hearing, No abnormal movements, No abnormal speech, No behavioral changes, No burning sensations, No confusion, No convulsions, No disequilibrium, No dizziness, No localized weakness, No frequent falls, No headache(s), No lack of coordination, No loss of vision, No memory loss, No numbness, No other visual disturbances, No radicular pain, No restless legs, No sensory deficit, No syncope, No tingling, No tremor(s), No weakness and No other Exam Const General: cooperative, healthy appearing, comfortable and no acute distress HENMT Head: normal to inspection Eyes General: appearance normal, both eyes and all related structures Neck Neck: normal visual inspection Neck mass: No Resp Effort & Inspection: normal respiratory effort Auscultation: clear to auscultation bilaterally Cardio Rate: regular rate Rhythm: regular rhythm GI Inspection: normal to inspection Palpation: soft and hernia (incisional ventral hernia at the umbilicus; partially reducible.) Auscultation: normal bowel sounds Musc Cervical Spine: normal cervical lordosis Skin General: no rashes or lesions noted Neuro General: no focal motor deficits and CN's II-XI intact bilaterally Extrem General: normal to inspection Psych Appearance: grossly normal Affect: normal affect Assessment and Plan Assessment and Plan (1) Ventral incisional hernia without obstruction or gangrene: Status: Acute Plan: Dr. Pollard will plan to perform a ventral incisional hernia repair with mesh. Per consult note, Dr. Pollard will plan to place the mesh in the retrorectus space completely obliterating the peritoneum and keeping it free from intraabdominal structures. Procedure details, risks and benefits have been reviewed. Patient has had the opportunity to ask and have questions answered. Patient agrees to proceed with the proposed procedure I have examined the patient and the H&P has been reviewed. There are no clinical changes since date of exam. Michoacano Pollard M.D., F.A.C.S.
--- NOTE | 2023-08-25 07:18 | DCINST_ITS ---
Discharge Instructions Procedure General Surgery Diet Discharge Diet: Light diet - advance as tolerated (if you have questions about your diet instructions, please talk to you doctor.) Activity Discharge Activity: May Not Drive (for 3-5 days or while taking narcotic pain medicine.) May shower in (days): 1 Lifting Restrictions: 10 pounds Dressing / Incision Call your doctor if your incision/area has: Continuous Slow Oozing, Sudden Increased Bleeding, Increased Pain/ Swelling, Increased Redness and Foul Smelling Discharge Call your doctor if you observe: Fever of 101 or Higher Suture Line Care: Avoid Pulling/Pushing and Avoid Pinching/Bending Additional Dressing/Incision Instructions:: Change or remove dressing in 4 days. Leave steri-strips in place for 1 week. Follow Up Care Please Follow Up With: Michoacano Pollard MD When: Call [phone] to make an appointment to be seen in about 10 days. Test Results: Test results from this visit will be discussed in further detail at your follow- up appointment, if applicable. Discharge Plan Admission Attending Provider: Michoacano Pollard Primary Care Provider: Dick Agrawal Discharge Orders/Prescriptions Prescriptions: No Action norethindrone (contraceptive) [Jencycla] 0.35 mg tablet 0.35 mg PO DAILY Qty: 84 4RF Referrals / Follow Up: Dick Agrawal MD [Primary Care Provider] - Disposition Disposition (needs filled in before D/C Order can be placed): Home, Self Care
[2023-08-25] MEDS: Cefazolin 2 GM in 0.9% Normal Saline (100mL Bag) 100 ML IV (07:30)
--- NOTE | 2023-08-25 07:30 | HERN_PTH ---
PATIENT: EARL JACKSON LOC: [facility] [place][id number] AGE/SX: 38/F ROOM: RE08/25/[address]: Dr. Michoacano Pollard MD : 1985 BED: DIS: 08/25/2023 SPEC #: [id number] RECD: 08/25/23 08:45 STATUS: RODO GARCIA #: [id number] SURJIT: 08/25/23 07:[address]: Michoacano Pollard DEPT: SURGICAL PATHOLOGY RECD BY: Johanny Rich ENTERED: 08/25/23 08:57 SP TYPE: Hernia OTHR DR: Dr. Dick Agrawal MD Tissues: HERNIA Procedures: Surgery Specimen Level II HEADER OPERATION: Hernia, ventral/incisional repair with mesh PRE-OP DIAGNOSIS: Ventral incisional hernia without obstruction or gangrene. TISSUE SUBMITTED: Hernia sac and contents MICROSCOPIC DIAGNOSIS Hernia sac and contents, excision: Fibrosis and chronic inflammation. AM/mr 08/26/23 MICROSCOPIC DESCRIPTION Slides are reviewed. GROSS DESCRIPTION Received in fixative is one container labeled with the patient's name and designated Hernia sac and contents. The specimen consists of multiple irregular fragments of gavin-yellow fibrofatty tissue measuring in aggregate 4.0 x 4.0 x 1.5cm. Serial sections do not reveal mass lesions. Hardwood Faller sections are submitted in one cassette. AM/mr 08/25/2023 TC:5 CPT: 18035
[2023-08-25] MEDS: Bupivacaine Mpf 0.5% 30 ML VIAL (08:19)
--- NOTE | 2023-08-25 08:22 | OP.PCM_ITS ---
Report of Operation Date of Procedure: 08/25/23 Pre-Operative Diagnosis: Umbilical ventral incisional hernia Post-Operative Diagnosis: 3.5 cm diameter incisional ventral hernia at the umbilicus Surgery/Procedure Performed:: Ventral incisional herniorrhaphy with 6.[address] mesh reference [id number], Lot [id number], expiry date 04/10/2025 Description of Surgical Findings:: Timeout informed consent was obtained. 38-year-old female was taken to the operating placed upon the table underwent general endotracheal ovation anesthesia. Ancef 2 g were given intravenously. The abdomen was sterilely prepped and draped. 0.5% Marcaine was used as a local anesthetic. Skin sites were preanesthetized. Throughout the procedure a total of 30 cc was used. Because of the previous incision I did a supraumbilical circumareolar elliptical excision of the previous skin scar. The skin was inspected and discarded. Sharp dissection carried down through the subcutaneous tissue. The peritoneum hernia sac was carefully dissected free from the umbilical skin. The hernia sac was then amputated and a portion was sent as a specimen. Hemostasis was assured with electrocautery. Then the peritoneum was carefully dissected free to devel op the retrorectus space. This was performed circumferentially. A 6.[address] mesh was then placed in the retrorectus space. The tails were secured with interrupted 0 Nurolon. The fascia was closed with simple sutures of 0 Nurolon and I captured the anterior portion of the mesh with each stitch. Closure was performed. The cat-incisional area anesthetized with 0.5% Marcaine. The umbilical skin was secured to the fascia with a 3-0 Vicryl. Skin edges were approximated opted for Monocryl subdermal stitches. Surgical glue was applied. Cottonball Telfa OpSite dressing. Sponge, instrument, needle counts were reported to the surgeon to be correct. Specimen hernia sac and contents. Drains none. Blood loss minimal. The patient was taken to the recovery room in satisfied condition without apparent complication Michoacano Pollard M.D., F.A.C.S. Surgeon: Michoacano Pollard Type of Anesthesia: General and Local Anesthesiologist: Stalin Carrizales
[2023-08-25 08:39] VITALS: BP 106/73; BP 112/71; BP 117/53; PULSE 106; PULSE 116; RESP 16; TEMP 37.1; O2SAT 96; O2SAT 97
[2023-08-25 08:44] VITALS: BP 106/73; BP 113/73; PULSE 101; RESP 16; O2SAT 96
[2023-08-25 08:50] VITALS: BP 106/73; BP 116/73; PULSE 102; RESP 16; TEMP 36.6; O2SAT 95
[2023-08-25] MEDS: Acetaminophen 325 MG Tablet 650 MG PO (09:17)
[2023-08-25 10:04] VITALS: BP 106/73; BP 109/74; PULSE 84; RESP 16; TEMP 36.6; O2SAT 98
[2023-08-25 11:12] VITALS: BP 106/73
== END 2023-08-25 11:15 | disposition home or self-care (01) ==
LOC: SDC 05:29 → AC 05:33
PROVIDERS: Anesthesiology; PCP Family Medicine; Referring Provider Surgery; Visit Provider Surgery
PROC: (CPT 49593; principal; 2023-08-25 07:15)
DX: K43.2 Incisional hernia without obstruction or gangrene (principal); Z90.49 Acquired absence of other specified parts of digestive tract; Z80.3 Family history of malignant neoplasm of breast; K21.9 Gastro-esophageal reflux disease without esophagitis; R00.2 Palpitations
CPT/HCPCS: 49593; 00832; 36415; 80048; 81025; 85027; 88302; 93005; C1781; J7120; J2405

== ENCOUNTER → 2024-07-21 | Outpatient (CLI) | payer OTHER, SELFPAY ==
--- NOTE | 2024-07-21 08:15 | BI_ITS ---
EXAM: SCRN MAMM (CAD)W/CAMERON BILAT 07/21/2024 CLINICAL HISTORY: F, Age 39 y/o , SCREEN FOR BREAST CANCER TECHNIQUE: Bilateral screening digital breast tomosynthesis with 2D and 3D images. Computer aided detection. COMPARISON: Prior exam(s) dated 07/02/2023, 02/18/2022. FINDINGS: TISSUE DENSITY: The breast tissue is composed of scattered area of fibroglandular density. Bilateral Breast Mammographic Findings: No significant masses, calcifications or other abnormalities are identified. BI/SCRN MAMM (CAD)W/CAMERON BILAT IMPRESSION: Right Breast: BIRADS 1 NEGATIVE. Left Breast: BIRADS 1 NEGATIVE. OVERALL FINAL ASSESSMENT: BIRADS 1 NEGATIVE. RECOMMENDATION: Routine annual follow-up in 1 Year A letter with findings and recommendations will be mailed to the patient. Reading Location: [id number]
== END | disposition home or self-care (01) ==
LOC: OPBI 08:07
PROVIDERS: PCP Family Medicine; Referring Provider Nurse Practitioner Family; Visit Provider Nurse Practitioner Family
DX: Z12.31 Encounter for screening mammogram for malignant neoplasm of breast (principal)
CPT/HCPCS: 77063; 77067